=== PATIENT | female | born 1955 | race African-American/Black ===

== ENCOUNTER 2017-09-09 15:00 | Outpatient (CLI) | payer MEDICARE, OTHER ==
[~2017-09-09] VITALS: Ht 174 cm; Wt 136.1 kg
[~2017-09-09 15:00] MED LIST: ARIP2TAB10 PO; CARB200C3 PO; CARB200T6; CEPH500C PO; CIPR-17; CYCL10TA9; CYCL10TA9 PO; DARI7.5T8; DESV50TA PO; DEXT5TAB25 PO; DICY10CA12; DOCU-143 PO; DULO60CA6; ESCI10TA PO; FLC1T; FLC1T PO; FOLI0.4T2 PO; FOLI0.8T PO; FOLI1TAB24 PO; GABA-488 PO; HYDR-3454 PO; INSU100V6; INSU100V6 SQ; INSU300I SQ; LISI1TAB2; LISI1TAB6 PO; MELA1TAB15 PO; MELA1TAB16 PO; MELO-195; MELO-195 PO; METH2.5T PO; MIRT15TA6 PO; MTX2.5T; OXYC-197 PO; OXYC-471 PO; PRED2.5T PO; PROP60CA PO; SITA1TAB6; SITA1TAB6 PO; SITA1TBM4 PO; TIZA2TAB3 PO; TRAM50TA2; TRAM50TA2 PO; VENL75CA PO; VENL75TA6 PO
[2017-09-09] MEDS ORDERED: VORT20TA PO (15:20)
[2017-09-09] MEDS ORDERED: PRIM50TA PO (15:20)
[2017-09-09] MEDS ORDERED: SUCR1TAB PO (15:20)
[2017-09-09] MEDS ORDERED: LEVO50TA6 PO (15:20)
[2017-09-09] MEDS ORDERED: PRED2.5T PO (15:20)
[2017-09-09] MEDS ORDERED: ESCI20TA PO (15:20)
[2017-09-09] MEDS ORDERED: TRAM50TA2 PO (15:20)
[2017-09-09] MEDS ORDERED: PANT40TA2 PO (15:20)
[2017-09-09] MEDS ORDERED: TRAZ-28 PO (15:20)
== END 2017-09-09 15:32 ==
LOC: PREOP 15:00
PROVIDERS: ATTEND Surgery
DX: Z01.818 Encounter for other preprocedural examination (principal); E66.01 Morbid (severe) obesity due to excess calories; Z68.41 Body mass index [BMI] 40.0-44.9, adult

== ENCOUNTER 2017-09-12 08:38 | Inpatient (IN) | payer MEDICARE, OTHER ==
[~2017-09-12] VITALS: Ht 174 cm; Wt 136.1 kg
[~2017-09-12 08:38] MED LIST changes: +ESCI20TA PO; +LEVO50TA6 PO; +PANT40TA2 PO; +PRIM50TA PO; +SUCR1TAB PO; +TRAZ-28 PO; +VORT20TA PO
[2017-09-12] MEDS ORDERED: ceFAZolin INJECTION 1,000 MG in NS (IVPB) 50 ML IV ONE (08:45)
--- NOTE | 2017-09-12 09:00 | Progress Note-Pre Operative ---
Pre-Operative Progress Note H&P Reviewed The H&P was reviewed, patient examined and no changes noted. Date Seen by Provider: Sep 12, 2017 Time Seen by Provider: 09:00 Date H&P Reviewed: Sep 12, 2017 Time H&P Reviewed: 09:00 Pre-Operative Diagnosis: morbid obesity, DM, HTN ROMERO HAWK MD Sep 12, 2017 9:00 am
[2017-09-12 09:12] VITALS: BP 126/80
[2017-09-12 09:15] LABS: BASOPHILS % (AUTO) 0 % (0-10); EOSINOPHILS % (AUTO) 0 % (0-10); HEMATOCRIT 43 % (35-52); LYMPHOCYTES # (AUTO) 3.3 X 10^3 (1.0-4.0); LYMPHOCYTES % (AUTO) 34 % (12-44); MEAN CORPUSCULAR HEMOGLOBIN 32 PG (25-34); MEAN CORPUSCULAR HGB CONC 35 G/DL (32-36); MEAN CORPUSCULAR VOLUME 91 FL (80-99); MEAN PLATELET VOLUME 10.3 FL (7.4-10.4); MONOCYTES # (AUTO) 0.9 X 10^3 (0.0-1.0); MONOCYTES % (AUTO) 9 % (0-12); NEUTROPHILS # (AUTO) 5.7 X 10^3 (1.8-7.8); NEUTROPHILS % (AUTO) 58 % (42-75); PLATELET COUNT 242 10^3/uL (130-400); RED BLOOD COUNT 4.72 10^6/uL (4.35-5.85); RED CELL DISTRIBUTION WIDTH 14.6 % (10.0-14.5); WHITE BLOOD COUNT 9.9 10^3/uL (4.3-11.0)
[2017-09-12] MEDS: LACTATED RINGERS 1,000 ML IV PRN ×2 (09:30→11:03)
[2017-09-12 09:37] LABS: BUN/CREATININE RATIO 14; CALCIUM 10.2 MG/DL (8.5-10.1); CARBON DIOXIDE 24 MMOL/L (21-32); CHLORIDE 101 MMOL/L (98-107); CREATININE SERUM 0.94 MG/DL (0.60-1.30); GFR ESTIMATED > 60; GLUCOSE 129 MG/DL (70-105); POTASSIUM 3.7 MMOL/L (3.6-5.0); SODIUM 136 MMOL/L (135-145)
[2017-09-12] MEDS ORDERED: BUP/EPI 0.5% 1:200,000 (SENSORCAINE) 30 ML VIAL ONE (09:51)
[2017-09-12] MEDS ORDERED: FAMOTIDINE 20MG/2ML IV (PEPCID) IV ONE (10:00)
[2017-09-12] MEDS ORDERED: morphine INJ 10 MG/ML 1ML (SYR OR VIAL) ONE (12:41)
[2017-09-12] MEDS ORDERED: NS IV 1000 ML 1,000 ML IV SCH (12:41)
--- NOTE | 2017-09-12 12:41 | Progress Note-Post Operative ---
Post-Operative Progess Note Surgeon (s)/Digital Advisor (s) Surgeon ROMERO HAWK MD Digital Advisor: garcia dosbon TRAVELING CLERK Pre-Operative Diagnosis morbid obesity, DM, HTN Post-Operative Diagnosis same Procedure & Operative Findings Date of Procedure 09/12/17 Procedure Performed/Findings laparoscopic gastric sleeve resection. Anesthesia Type GET Estimated Blood Loss Estimated blood loss (mL): minimal Specimens/Packing Specimens Removed stomach ROMERO HAWK MD Sep 12, 2017 12:41 pm
[2017-09-12] MEDS ORDERED: ONDANSETRON 4 MG/2 ML (SDV) Z0FRAN ONE (12:42)
[2017-09-12] MEDS ORDERED: fentaNYL INJECTION 1,000 MCG in NS (IVPB) 80 ML IV SCH (12:45)
[2017-09-12] MEDS ORDERED: NALOXONE 0.4 MG/ML 1 ML (NARCAN) VIAL IV PRN (12:45)
[2017-09-12] MEDS ORDERED: diphenhydrAMINE 50 MG/ML INJ (BENADRYL) IV PRN (12:45)
[2017-09-12] MEDS ORDERED: ONDANSETRON 4 MG/2 ML (SDV) Z0FRAN IV PRN ×2 (12:45→16:00)
[2017-09-12] MEDS ORDERED: METOCLOPRAMIDE INJ 10 MG/2 ML (REGLAN) IV PRN (12:45)
[2017-09-12] MEDS ORDERED: RT-ALBUTEROL SULF 2.5 MG/3 ML PRE-MIX VIAL INH SCH (12:45)
[2017-09-12] MEDS ORDERED: diphenhydrAMINE 50 MG/ML INJ (BENADRYL) IVP PRN (12:45)
--- NOTE | 2017-09-12 12:50 | Discharge Inst-Surgical ---
D/C Lap Instructions-CARINE Follow Up Appt in 2 weeks Activity as tolerated No driving for 24 hours No driving while on pain medications Incentive Spirometry use every 2 hours while awake Phase 1 clear liquid diet 2 weeks. Symptoms to Report: Fever over 101 degree F, Nausea/Vomiting Infection Signs and Symptoms to report: Increased redness, Foul odor of wound, Increased drainage Bathing instructions: May shower Operative Area Clean/Dry; Keep incision clean/dry If any problems/questions: Contact your physician or go to Emergency Room ROMERO HAWK MD Sep 12, 2017 12:50 pm
[2017-09-12] MEDS ORDERED: ONDANSETRON 4 MG/2 ML (SDV) Z0FRAN IVP PRN (13:00)
[2017-09-12] MEDS: morphine INJ 10 MG/ML 1ML (SYR OR VIAL) IVP PRN ×3 (13:16→13:24)
[2017-09-12] MEDS ORDERED: fentaNYL INJECTION 100 MCG/2 ML AMP ONE (13:31)
[2017-09-12] MEDS: fentaNYL INJECTION 100 MCG/2 ML AMP IVP PRN ×5 (13:33→16:17)
--- NOTE | 2017-09-12 15:48 | OPERATIVE REPORT ---
DATE OF SERVICE: ATTENDING PRIMARY CARE PHYSICIAN: Dr. Ezequiel Zamora. PREOPERATIVE DIAGNOSES: Morbid obesity, diabetes, hypertension. POSTOPERATIVE DIAGNOSES: Morbid obesity, diabetes, hypertension. PROCEDURE: Laparoscopic gastric sleeve resection. SURGEON: Romero Hawk MD. ANESTHESIA: General endotracheal. ESTIMATED BLOOD LOSS: Minimal. FINDINGS: Moderate liver cirrhosis and steatosis. DISPOSITION: The patient tolerated the procedure well. INDICATIONS FOR PROCEDURE: The patient is a 62-year-old female with morbid obesity who is in our surgical weight loss program for the laparoscopic gastric sleeve resection and meets the medical criteria for bariatric surgery. She reports that she is an overweight the majority of her life even as a child. She has tried a number of diet and exercise attempts without any success. She has tried diet programs including Weight Watchers, soup diet, grapefruit diet, small portion control as well as low calorie and low carbohydrate diet with no success except for Weight Watchers in which she did lose approximately 130 pounds; however, regained the weight back. She has tried exercise programs including walking, water aerobics again with no success. She has tried medications in the past; however, unsure what they were. However, does not report any success. Her medical comorbidities related to her obesity include hypertension, diabetes, rheumatoid arthritis, degenerative joint disease, depression. DESCRIPTION OF PROCEDURE: The patient was brought to the operating room, laid supine on the table. After adequate IV pain and sedative medications and general endotracheal intubation, the abdomen was prepped and draped in standard surgical fashion. A 0.5% Marcaine with epinephrine was then used to anesthetize the overlying skin in the left upper abdominal quadrant and a transverse skin incision made using a 15 blade. An 0 silk suture was applied to the medial aspect of the incision for retraction and a Veress needle inserted with a low opening pressure of 0 mmHg and abdomen was insufflated to 15 mmHg pressure. The Veress needle removed and a 5 mm Xcel trocar placed followed by a 5 mm 45-degree angle laparoscope visualizing the peritoneal cavity. A 4-quadrant abdominal exploration was performed. There was moderate liver cirrhosis and significant liver steatosis. What was visualized of the remainder of the stomach, small bowel, omentum appeared normal. There was no identifiable hiatal hernia. Under direct visualization, we then proceeded to place a midabdominal left of midline 5 mm port after the skin and peritoneum were anesthetized using 0.5% Marcaine with epinephrine and a transverse skin incision made using a 15 blade. In a similar manner, a midabdominal right of midline 15 mm port was placed followed by a 5 mm right upper abdominal quadrant port. The epigastric region was then anesthetized and a transverse skin incision made using a #11 blade. A tract was then created through the abdominal wall layers using a trocar to a 5 mm port. Through this opening, a medium-sized Nathansen liver retractor was placed and the left lobe of the liver retracted anteriorly and superiorly. The patient was then placed in steep reverse Trendelenburg position. We then measured the distance from the pylorus along the greater curvature cephalad 6 cm then marked this with a marking pen. The gastrocolic ligament next to the stomach was then opened using Sonicision entering the lesser sac. We then proceeded with inferior dissection until her caudal dissection until we were probably approximately 2 cm below our marking. We then proceeded with cephalad dissection taking down the short gastric vessels with visualization of good hemostasis. The angle of His, connective tissue fibers were then dissected out as well as the posterior stomach behind. No hiatal hernia was identified. A 42-Azeri bougie was then placed under direct visualization guiding at the tip into the pylorus. We used this guide for our staple line. A RAFIA 45 mm polyglycolic acid coated black load stapler was then used to staple and transect the stomach into approximately 2 cm below our marking. We then proceeded with a 60 mm black followed by 360 mm purple loads to complete our gastric sleeve resection. Good hemostasis was observed. The staple line corners were then clipped with 5 mm clips. Tisseel fibrin glue was then placed on to the suture line and the omentum placed over the staple line. The stomach has removed through the 15 mm port site. The fascia to the 15 and 10 mm port site was then closed under direct visualization using Vadim-Ruben device and 0 Vicryl suture. The liver retractor and was then removed as was the bougie. The abdomen was desufflated and the remaining ports removed. All skin incisions were closed using 4-0 Monocryl running subcuticular sutures. Wounds were then cleaned and covered with Dermabond. The patient tolerated the procedure well. We will admit her to the general surgical floor. We will proceed with DVT prophylaxis with calf SCDs early ambulation as well as Lovenox injections. We will also proceed with pain control with a fentanyl BLEND TECHNICIAN. Tomorrow morning, we will start clear liquid diet. Once she is tolerating least 60 mL of fluid over half hour, she has adequate pain control with oral pain medication and is ambulating well. We will discharge her home. She will also need to follow clear liquid diet for the next 2 weeks. Job ID: [id number] DocumentID: [id number] Dictated Date: 09/12/2017 13:00:27 Ticket Attendant Date: 09/12/2017 15:47:49 Dictated By: ROMERO HAWK MD MTDD
[2017-09-12 15:50] VITALS: BP 134/82
[2017-09-12] MEDS: 1/2 NS W/KCL 20 MEQ/L 1,000 ML IV SCH ×3 (16:16→23:23)
[2017-09-12] MEDS: metroNIDAZOLE 500MG/100ML IVPB 100 ML IV SCH ×2 (16:17→23:23)
[2017-09-12] MEDS: meTOprolol 5 MG/5 ML (LOPRESSOR) VIAL IVP SCH ×2 (16:26→20:17)
[2017-09-12 16:50] VITALS: BP 127/89
[2017-09-12] MEDS: inSUlin ASPART (NovoLOG) 1 UNIT/0.01 ML (CHARGE PER UNIT) SC SCH ×2 (17:30→23:28)
[2017-09-12] MEDS: METOCLOPRAMIDE INJ 10 MG/2 ML (REGLAN) IVP SCH ×2 (18:12→23:33)
[2017-09-12] MEDS: ONDANSETRON 4 MG/2 ML (SDV) Z0FRAN IVP SCH ×2 (18:12→23:33)
[2017-09-12] MEDS: ceFAZolin 2 GM IV Premixed 50 ML IV SCH (18:13)
[2017-09-12 18:30] VITALS: BP 122/72
[2017-09-12 20:15] VITALS: BP 120/64
[2017-09-12] MEDS: ENOXAPARIN 40 MG/0.4 ML (LOVENOX) SYR SC SCH (21:32)
[2017-09-12] MEDS: RT-ALBUTEROL SULF 2.5 MG/3 ML PRE-MIX VIAL INH SCH (22:10)
[2017-09-13 00:10] VITALS: BP 136/80
[2017-09-13] MEDS: meTOprolol 5 MG/5 ML (LOPRESSOR) VIAL IVP SCH ×3 (00:18→09:11)
[2017-09-13] MEDS: ceFAZolin 2 GM IV Premixed 50 ML IV SCH ×2 (01:55→10:31)
[2017-09-13] MEDS: RT-ALBUTEROL SULF 2.5 MG/3 ML PRE-MIX VIAL INH SCH ×2 (02:28→07:09)
[2017-09-13 04:00] VITALS: BP 145/86
[2017-09-13] MEDS: METOCLOPRAMIDE INJ 10 MG/2 ML (REGLAN) IVP SCH ×2 (05:48→14:10)
[2017-09-13] MEDS: ONDANSETRON 4 MG/2 ML (SDV) Z0FRAN IVP SCH ×2 (05:48→14:10)
[2017-09-13] MEDS: inSUlin ASPART (NovoLOG) 1 UNIT/0.01 ML (CHARGE PER UNIT) SC SCH ×2 (06:05→11:00)
[2017-09-13] MEDS: metroNIDAZOLE 500MG/100ML IVPB 100 ML IV SCH (06:53)
[2017-09-13 08:00] VITALS: BP 149/69
[2017-09-13] MEDS: 1/2 NS W/KCL 20 MEQ/L 1,000 ML IV SCH (08:35)
[2017-09-13] MEDS: ENOXAPARIN 40 MG/0.4 ML (LOVENOX) SYR SC SCH (08:36)
[2017-09-13] MEDS ORDERED: SENNA W/DOCUSATE (SENOKOT S) TABLET PO SCH (09:00)
[2017-09-13] MEDS ORDERED: PANTOPRAZOLE 40 MG/10 ML (PROTONIX) VIAL IV SCH (09:00)
[2017-09-13] MEDS: oxyCODONE 5 MG/5 ML ORAL SOLN (roxiCODONE) 5 ML UDC PO PRN ×2 (09:12→14:03)
[2017-09-13 10:18] LABS: HEMOGLOBIN 14.7 G/DL (11.5-16.0); MEAN PLATELET VOLUME 11.4 FL (7.4-10.4); RED BLOOD COUNT 4.54 10^6/uL (4.35-5.85); RED CELL DISTRIBUTION WIDTH 14.2 % (10.0-14.5); WHITE BLOOD COUNT 13.2 10^3/uL (4.3-11.0)
[2017-09-13 10:36] LABS: BUN/CREATININE RATIO 18; CALCIUM 8.9 MG/DL (8.5-10.1); CARBON DIOXIDE 23 MMOL/L (21-32); CHLORIDE 99 MMOL/L (98-107); CREATININE SERUM 0.77 MG/DL (0.60-1.30); GFR ESTIMATED > 60; GLUCOSE 156 MG/DL (70-105); SODIUM 135 MMOL/L (135-145)
[2017-09-13] MEDS ORDERED: RT-ALBUTEROL SULF 2.5 MG/3 ML PRE-MIX VIAL INH PRN (10:45)
[2017-09-13 12:00] VITALS: BP 169/79
[2017-09-13] MEDS ORDERED: METOCLOPRAMIDE INJ 10 MG/2 ML (REGLAN) IVP PRN (12:45)
[2017-09-13] MEDS ORDERED: ONDANSETRON 4 MG/2 ML (SDV) Z0FRAN IVP PRN (12:45)
--- NOTE | 2017-09-13 13:09 | Anesthesia-General Post-Op ---
General Patient Condition Mental Status/LOC: Same as Preop Cardiovascular: Satisfactory Nausea/Vomiting: Absent Respiratory: Satisfactory Pain: Controlled Complications: Absent Post Op Complications Complications None Follow Up Care/Instructions Patient Instructions None needed. Anesthesia/Patient Condition Patient Condition Patient is doing well, no complaints, stable vital signs, no apparent adverse anesthesia problems. No complications reported per nursing. GONZÁLEZ SNYDER CRNA Sep 13, 2017 13:09
--- NOTE | 2017-09-13 13:26 | Progress Note (SOAP) ---
Subjective Date Seen by Provider: Sep 13, 2017 Time Seen by Provider: 13:00 Subjective/Events-last exam doing well. has some abdominal pain however tolerable. tolerating well. has not tried ambulating yet. Objective Exam Vital Signs Date Time Temp Pulse Resp B/P (MAP) Pulse Ox O2 Delivery O2 Flow Rate FiO2 09/13/17 08:00 97.3 73 20 149/69 (95) 98 Room Air 09/13/17 07:09 97 Room Air 09/13/17 06:56 18 09/13/17 04:00 98.6 77 20 145/86 (105) 100 Room Air 09/13/17 02:18 95 Room Air 09/13/17 00:26 18 09/13/17 00:10 98.4 85 18 136/80 (98) 98 Room Air 09/12/17 22:10 97 Room Air 09/12/17 21:15 20 09/12/17 20:15 96.4 75 20 120/64 (82) 100 Room Air 09/12/17 18:39 20 09/12/17 18:36 20 09/12/17 18:32 96 Room Air 09/12/17 18:30 96.5 76 20 122/72 (89) 100 Room Air 09/12/17 16:50 96.4 78 20 127/89 (102) 99 Room Air 09/12/17 16:15 2 09/12/17 15:50 96.3 67 20 134/82 (99) 99 Room Air I & O 09/13/17 07:00 Intake Total 2150 ml Output Total 905 ml Balance 1245 ml Capillary Refill : General Appearance: No Apparent Distress HEENT: PERRL/EOMI Neck: Full Range of Motion, Normal Inspection Respiratory: Chest Non Tender, Lungs Clear, Normal Breath Sounds Cardiovascular: Regular Rate, Rhythm Gastrointestinal: normal bowel sounds, soft, other (wound clean/dry) Extremity: Normal Capillary Refill Neurologic/Psychiatric: Alert, Oriented x3 Skin: Normal Color Lymphatic: No Adenopathy Results Lab Laboratory Tests 09/12/17 17:26: Glucometer 182H 09/12/17 23:27: Glucometer 144H 09/13/17 05:52: Glucometer 169H 09/13/17 10:00: White Blood Count 13.2H, Red Blood Count 4.54, Hemoglobin 14.7, Hematocrit 41, Mean Corpuscular Volume 91, Mean Corpuscular Hemoglobin 32, Mean Corpuscular Hemoglobin Concent 36, Red Cell Distribution Width 14.2, Platelet Count 203, Mean Platelet Volume 11.4H, Sodium Level 135, Potassium Level 4.0, Chloride Level 99, Carbon Dioxide Level 23, Anion Gap 13, Blood Urea Nitrogen 14, Creatinine 0.77, Estimat Glomerular Filtration Rate > 60, BUN/Creatinine Ratio 18, Glucose Level 156H, Calcium Level 8.9 Microbiology 09/12/17 MRSA Screen - Final, Complete MRSA not isolated Assessment/Plan Assessment/Plan Assess & Plan/Chief Complaint s/p laparoscopic gastric sleeve resection. ambulate. phase 1 clear liquid diet for next 2 weeks. home soon. ROMERO HAWK MD Sep 13, 2017 1:26 pm
[2017-09-13 14:00] VITALS: BP 158/88
[2017-09-13] MEDS ORDERED: RT-ALBUTEROL SULF 2.5 MG/3 ML PRE-MIX VIAL INH SCH (14:00)
[2017-09-13 15:15] VITALS: BP 158/88
--- NOTE | 2017-09-13 15:22 | Consultation-Hospitalist ---
HPI History of Present Illness: HPI/Chief Complaint Pt is a 62yoAAF with a PMH of HTN, IDDMII, and depression who was admitted for bariaatric surgery. I am consulted for medical management. She reports that she is have some abdominal pain around her surgery site and doesn't feel well but has not felt well for a while prior to her surgery. She states she had the surgery to help with her energy and not necessarily her weight. She was able to take herself off her insulin as her blood sugars were well controlled. She otherwise had no complaints during my exam. She was up already out of bed today and tolerating her liquid diet. Source: patient Date Seen 09/13/17 Attending Physician Joo Victoria MD PCP Ezequiel Zamora MD Referring Physician Date of Admission Sep 12, 2017 at 12:42 Home Medications & Allergies Home Medications Reviewed patient Home Medication Reconciliation Form Allergies Allergies Coded Allergies lithium (Verified Allergy, Severe, SHUT KIDNEYS DOWN, 09/09/17) Sulfa (Sulfonamide Antibiotics) (Unverified Allergy, Mild, ITCHING;RASH, ) Past Tvepejv-Zgncsj-Ykmvck Hx Patient Social History Alcohol Use: Denies Use Recreational Drug Use: No Smoking Status: Never a Smoker Recent Foreign Travel: No Contact w/other who traveled: No Recent Hopitalizations: No Immunizations Up To Date Tetanus Booster (TDap): Unknown Seasonal Allergies Seasonal Allergies: No Surgeries Gallbladder, Hysterectomy, Lumpectomy Cardiovascular Hypertension Neurological Headaches /Migraines, Neuropathy Reproductive System Hx Reproductive Disorders: No Sexually Transmitted Disease: No HIV/AIDS: No Genitourinary Bladder Infection, Kidney Stones, Renal Failure Gastrointestinal Gastroesophageal Reflux, Polyps, Irritable Bowel Musculoskeletal Degenerate Disk Disease, Fibromyalgia, Chronic Back Pain Endocrine Endocrine Disorders: Diabetes, Insulin dep HEENT Loss of Vision: Bilateral Hearing Impairment: Denies Cancer Breast Did You Recieve Any Treatments: Yes Type of Treatment: Chemotherapy, Radiation, Surgical Intervention Psychosocial Behavioral Health Disorders: Depression Integumentary Skin/Integumentary Disorders: Psoriasis Blood Transfusions Adverse Reaction to a Blood Tr: No Family Medical History Family Hx: ANEURYSM ON HEART 19 FATHER Abdominal aortic aneurysm COLON CANCER Cardiovascular disease 19 MOTHER Hypertension 19 MOTHER Prostate cancer 19 FATHER SLEEP APNEA 19 FATHER TIA'S 19 FATHER Review of Systems Constitutional: No chills, No fever, malaise EENTM: No blurred vision, No double vision, No nose congestion, No throat pain Respiratory: No cough, No dyspnea on exertion, No short of breath Cardiovascular: No chest pain, No edema, No palpitations Gastrointestinal: abdominal pain, No constipation, No diarrhea, No nausea, No vomiting Genitourinary: No dysuria, No frequency Musculoskeletal: No joint pain, No muscle pain Skin: No lesions, No rash Psychiatric/Neurological: Depressed, Denies Headache, Denies Numbness, Denies Tingling Physical Exam Physical Exam Vital Signs Vital Signs - First Documented 09/12/17 09:12 Temp 97.6 Pulse 82 Resp 18 B/P (MAP) 126/80 (95) Pulse Ox 97 O2 Delivery Room Air Capillary Refill : General Appearance: No Apparent Distress, Obese HEENT: PERRL/EOMI, Moist Mucous Membranes Neck: Non Tender, Supple Respiratory: Lungs Clear, No Respiratory Distress Cardiovascular: Regular Rate, Rhythm, No Murmur Gastrointestinal: Normal Bowel Sounds, Soft, Tenderness (appropriately so) Extremity: Normal Capillary Refill, No Calf Tenderness Neurologic/Psychiatric: Alert, Oriented x3, Other (flat affect) Skin: Normal Color, Warm/Dry Results Results/Procedures Lab Laboratory Tests 09/12/17 09:05 09/13/17 10:00 Assessment/Plan Admission Diagnosis bariatric surgery Diagnosis/Problems Diagnosis/Problems (1) Insulin dependent diabetes mellitus Status: Chronic Assessment & Plan: Has taken self off insulin Will Continue sliding scale Hold orals currently ACHS blood sugars (2) Essential (primary) hypertension Assessment & Plan: Relatively well controlled prn metoprolol available (3) Depression Status: Chronic Assessment & Plan: On multiple antidepressants as an outpatient If tolerates her oral intake today will resume tomorrow Qualifiers: Qualified Codes: F33.9 - Major depressive disorder, recurrent, unspecified (4) Hypothyroidism Assessment & Plan: On Synthroid at home Will resume tomorrow ROGE HEATH MD Sep 13, 2017 15:22
--- OUTSIDE RECORDS SUMMARY | 2017-09-15 05:37 | XMS REPORT ---
Author Author MIQUEL VEGAS [facility] eClinicalWorks Address Unknown Phone Unavailable Care Team Providers Care Lpn Private Duty Name Role Phone MIQUEL VEGAS CP Unavailable Allergies, Adverse Reactions, Alerts Substance Reaction Event Type SulfADIAZINE itching Drug Allergy Problems Problem Type Condition Code Onset Dates Condition Status Assessment Major depressive disorder, recurrent severe without psychotic features F33.2 Active Problem Major depressive disorder, recurrent severe without psychotic features F33.2 Active Medications Medication Code System Code Instructions Start Date End Date Status Dosage Insulin Glargine [facility] [address]-78 100 UNIT/ML Subcutaneous 2 times a day 50 units Melatonin [facility] [address]-20 3 MG Orally Once a day 2 tablet at bedtime as needed with food Mirtazapine [facility] [address]-87 15 MG TAKE 0.5- 1 TABLET BY ORAL ROUTE 1 TIME PER DAY AT HS Folic Acid [facility] [address]-22 400 mcg Jul 08, 2014 2 Tablet by Oral route 1 time per day Meloxicam [facility] [address]-53 15 MG Orally Once a day 1 tablet Tramadol HCl [facility] [address]-62 50 MG Orally 2 IN THE AM AND 2 IN THE EVENING Methotrexate Sodium [facility] 0 2.5 mg Jul 08, 2014 8 Tablet by Oral route 1 time per week Gabapentin [facility] [address]-09 300 mg Aug 27, 2012 1 Capsule by Oral route 1 time per day Marissa Carbonate [facility] [address]-44 300 MG Orally Three times a day Jun 1 capsule cyclobenzaprine [facility] [address]-30 10 mg Aug 12, 2014 1 Tablet by Oral route 1 time per day qAM AND 2 Tablet by Oral route 1 time per day qHS Lisinopril-Hydrochlorothiazide [facility] [address]-45 10-12.5 mg Jul 08, 2014 1 Tablet by Oral route 2 times per day Janumet [facility] [address]-63 50-1000 MG Orally Twice a day 1 tablet with meals Procedures Procedure Coding System Code Date Office Visit, Est Pt., Level 3 CPT-4 12810 Jun 21, 2015 [facility] VISIT ESTABLISHED PATIENT CPT-4 G0467 Jun 21, 2015 Vital Signs Date/Time: Jun 21, 2015 Cardiac Monitoring Heart Rate 94 bpm Weight 309.1 lbs Height 68.5 in BMI 46.31 Index Blood Pressure Diastolic 82 mmHg Blood Pressure Systolic 162 mmHg Results No Known Results Summary Purpose eClinicalWorks Submission
--- OUTSIDE RECORDS SUMMARY | 2017-09-15 05:37 | XMS REPORT | Clinical Summary ---
Author Author [facility] Organization [facility] Address Unknown Phone Unavailable Care Team Providers Care Flight Hostess Name Role Phone Kristina Byrne ETCH OPERATOR [employer]IC[employer] Unavailable Unavailable Source Comments Some departments are not documenting in the electronic medical record. If you do not see the information that you expected, contact Release of Information in the Health Information Management department at [phone] for further assistance in locating additional records.[facility] Allergies Active Allergy Reactions Severity Noted Date Comments Sulfa (Sulfonamide 10/05/2003 Allergy recorded in SMS: Antibiotics) Sulfa~Reactions: HIVES Current Medications Not on file Active Problems Not on file Social History Tobacco Use Types Packs/Day Years Used Date Never Assessed Sex Assigned at Date Recorded Not on file Last Filed Vital Signs Not on file Plan of Treatment Health Maintenance Due Date Last Done Comments HEPATITIS C SCREENING 1954 PHYSICAL (COMPREHENSIVE) 1961 EXAM PERTUSSIS VACCINE 1965 TETANUS VACCINE 1971 CERVICAL CANCER SCREENING 1984 BREAST CANCER SCREENING 1994 COLORECTAL CANCER 2004 SCREENING SHINGLES VACCINE 2014 INFLUENZA VACCINE 03/05/2017 Results Not on filefrom Last 3 Months
--- OUTSIDE RECORDS SUMMARY | 2017-09-15 05:37 | XMS REPORT ---
Author Author AUDREY LANDEROS e[employer] Address Unknown Phone Unavailable Care Team Providers Care Greenskeeper Laborer Name Role Phone AUDREY LANDEROS CP Unavailable Allergies, Adverse Reactions, Alerts Substance Reaction Event Type [place] renal failure Drug Allergy SulfADIAZINE itching Drug Allergy Problems Problem Type Condition Code Onset Dates Condition Status Assessment Major depressive disorder, recurrent, moderate F33.1 Active Problem Major depressive disorder, recurrent, moderate F33.1 Active Medications Medication Code System Code Instructions Start Date End Date Status Dosage Augumet [facility] [address]-99 50-1000 MG Orally Twice a day 1 tablet with meals Folic Acid [facility] [address]-55 1 MG Orally Once a day Jul 08, 2014 1 tablet Cyclobenzaprine HCl [facility] [address]-16 10 MG Orally Three times a day 1 tablet Pristiq [facility] [address]-96 100 MG Orally Once a day 1 tablet Gabapentin [facility] [address]-11 300 mg Orally 3 times a day Aug 27, 2012 2 capsules Lisinopril-Hydrochlorothiazide [facility] [address]-69 10-12.5 mg Jul 08, 2014 1 Tablet by Oral route 2 times per day Tramadol HCl [facility] [address]-63 50 mg Orally 3 times a day 2 tablets Melatonin [facility] [address]-21 5 MG Orally Once a day 1 tablet PredniSONE [facility] [address]-06 2.5 MG Orally Once a day 1 tablet Adderall [facility] [address]-64 5 mg Orally Once a day 1 tablet in the morning Mirtazapine [facility] [address]-06 15 MG TAKE 0.5- 1 TABLET BY ORAL ROUTE 1 TIME PER DAY AT HS Methotrexate Sodium [place] 0 2.5 MG Orally once weekly Jul 08, 2014 8 Tablet by Oral route 1 time per week Procedures Procedure Coding System Code Date Office Visit, Est Pt., Level 2 CPT-4 43504 May 11, 2016 [facility] VISIT ESTABLISHED PATIENT CPT-4 G0467 May 11, 2016 Vital Signs Date/Time: May 11, 2016 Cardiac Monitoring Heart Rate 80 bpm Weight 285 lbs Height 68.5 in BMI 42.70 Index Blood Pressure Diastolic 70 mmHg Blood Pressure Systolic 122 mmHg Results No Known Results Summary Purpose eClinicalWorks Submission
--- OUTSIDE RECORDS SUMMARY | 2017-09-15 05:37 | XMS REPORT ---
Author Author KRISTOPHER LARA Organization [employer] Address Unknown Phone Unavailable Care Team Providers Care Litigation Examiner Name Role Phone KRISTOPHER LARA CP Unavailable Allergies No Known Allergies Problems Problem Type Condition ICD-9 Code Onset Dates Condition Status Assessment Dental examination V72.2 Active Problem Major depressive disorder, recurrent episode, moderate 296.32 Active Medications No Known Medications Procedures Procedure Coding System Code Date AMALGAM-TWO SURFACES PRIMARY/PERM CPT-4 D2150 Apr 05, 2015 AMALGAM-TWO SURFACES PRIMARY/PERM CPT-4 D2150 Apr 05, 2015 Results No Known Results Summary Purpose eClinicalWorks Submission
--- OUTSIDE RECORDS SUMMARY | 2017-09-15 05:37 | XMS REPORT ---
Author Author AUDREY LANDEROS [facility] Address [address] [place] [address] Care Team Providers Care Machine Spring Former Name Role Phone AUDREY LANDEROS Unavailable PROBLEMS Type Condition ICD9-CM Code HMA34-QZ Code Onset Dates Condition Status SNOMED Code Problem Psychophysiological insomnia F51.04 Active 808683825 Problem Major depressive disorder, recurrent episode, moderate F33.1 Active 113393215 Problem Anxiety state, unspecified F41.1 Active 270089184 ALLERGIES No Information SOCIAL HISTORY Never Assessed PLAN OF CARE VITAL SIGNS MEDICATIONS Medication Instructions Dosage Frequency Start Date End Date Duration Status Trazodone HCl 50 mg Orally Once a day 1 tablet at bedtime as needed 24h Sep, 30 day(s) Active RESULTS No Results PROCEDURES No Known procedures IMMUNIZATIONS No Known Immunizations MEDICAL (GENERAL) HISTORY Type Description Date Medical History seizure hx Surgical History Right Knee Replacement [facility] [place] 11/2015 Hospitalization History Acute Kidney Failure Nenita [facility] 07/2015
--- OUTSIDE RECORDS SUMMARY | 2017-09-15 05:37 | XMS REPORT ---
Author Author AUDREY LANDEROS [facility] eClinicalWorks Address Unknown Phone Unavailable Care Team Providers Care Hr Administrative Assistant Name Role Phone AUDREY LANDEROS Unavailable Allergies No Known Allergies Problems Problem Type Condition Code Onset Dates Condition Status Problem Major depressive disorder, recurrent episode, moderate F33.1 Active Problem Major depressive disorder, recurrent, moderate F33.1 Active Medications No Known Medications Results No Known Results Summary Purpose eClinicalWorks Submission
--- OUTSIDE RECORDS SUMMARY | 2017-09-15 05:37 | XMS REPORT ---
Author Author AUDREY LANDEROS Organization [facility] Address [address] [place] [address] Care Team Providers Care Cork Slabs Sawyer Name Role Phone GAURAV LANDEROSEDU Unavailable PROBLEMS Type Condition ICD9-CM Code [id number] Code Onset Dates Condition Status SNOMED Code Problem Psychophysiological insomnia F51.04 Active 709249714 Problem Major depressive disorder, recurrent episode, moderate F33.1 Active 931895710 Problem Anxiety state, unspecified F41.1 Active 598449045 ALLERGIES Substance Reaction Event Type Date Status Rosine renal failure Drug Allergy Aug, Active SulfADIAZINE itching Drug Allergy Aug, Active SOCIAL HISTORY No smoking Hx information available PLAN OF CARE Activity Details Follow Up 4 Weeks Reason: VITAL SIGNS Height 68.5 in 2016-08-15 Weight 289.5 lbs 2016-08-15 Heart Rate 84 bpm 2016-08-15 Respiratory Rate 18 2016-08-15 BMI 43.37 kg/m2 2016-08-15 Blood pressure systolic 118 mmHg 2016-08-15 Blood pressure diastolic 71 mmHg 2016-08-15 MEDICATIONS Medication Instructions Dosage Frequency Start Date End Date Duration Status Spikebreanna Alissa 300 UNIT/ML Active Pristiq 100 MG Orally Once a day 1 tablet 24h Active Gabapentin 300 mg Orally 3 times a day 2 capsules 8h Aug, Active Cyclobenzaprine HCl 10 MG Orally Three times a day 1 tablet 8h Active Belsomra 10 mg Orally Once a day 1 tablet at bedtime as needed 24h Aug, Active Lisinopril-Hydrochlorothiazide 10-12.5 mg 1 Tablet by Oral route 2 times per day Jul, Active Methotrexate Sodium 2.5 MG Orally once weekly 8 Tablet by Oral route 1 time per week Jul, Active Melatonin 5 MG Orally Once a day 1 tablet 24h Active Tramadol HCl 50 mg Orally 3 times a day 2 tablets 8h Active Folic Acid 1 MG Orally Once a day 1 tablet 24h Jul, Active Janumet 50-1000 MG Orally Twice a day 1 tablet with meals 12h Active Mirtazapine 7.5 MG Orally Once a day 1 tablet at bedtime 24h Active RESULTS No Results PROCEDURES Procedure Date Ordered Related Diagnosis Body Site [facility] VISIT ESTABLISHED PATIENT Aug 15, 2016 Office Visit, Est Pt., Level 2 Aug 15, 2016 IMMUNIZATIONS No Known Immunizations
--- OUTSIDE RECORDS SUMMARY | 2017-09-15 05:37 | XMS REPORT ---
Author Author AUDREY LANDEROS Organization [facility] Address [address] [place] [address] Care Team Providers Care Field Service Coordinator Name Role Phone GAURAV LANDEROSEDU Unavailable PROBLEMS Type Condition ICD9-CM Code [id number] Code Onset Dates Condition Status SNOMED Code Assessment Major depressive disorder, recurrent, moderate F33.1 Apr, Active 06990714 ALLERGIES Unknown Allergies SOCIAL HISTORY No smoking Hx information available PLAN OF CARE VITAL SIGNS Height 68.5 in 2016-04-10 Weight 289.0 lbs 2016-04-10 Heart Rate 78 bpm 2016-04-10 Respiratory Rate 20 2016-04-10 BMI 43.30 kg/m2 2016-04-10 Blood pressure systolic 122 mmHg 2016-04-10 Blood pressure diastolic 78 mmHg 2016-04-10 MEDICATIONS Medication Instructions Dosage Frequency Start Date End Date Duration Status Janumet 50-1000 MG Orally Twice a day 1 tablet with meals 12h Active PredniSONE 2.5 MG Orally Once a day 1 tablet 24h Active Mirtazapine 15 MG TAKE 0.5- 1 TABLET BY ORAL ROUTE 1 TIME PER DAY AT HS Active Cyclobenzaprine HCl 10 MG Orally Three times a day 1 tablet 8h Active Adderall 5 mg Orally Once a day 1/2 tablet 24h Apr, Active Lisinopril-Hydrochlorothiazide 10-12.5 mg 1 Tablet by Oral route 2 times per day Jul, Active Methotrexate Sodium 2.5 MG Orally once weekly 8 Tablet by Oral route 1 time per week Jul, Active Tramadol HCl 50 mg Orally 3 times a day 2 tablets 8h Active Melatonin 5 MG Orally Once a day 1 tablet 24h Active Gabapentin 300 mg Orally 3 times a day 2 capsules 8h Aug, Active Pristiq 50 mg Orally Once a day 2 tablets 24h 30 day(s) Active Folic Acid 1 MG Orally Once a day 1 tablet 24h Jul, Active RESULTS No Results PROCEDURES Procedure Date Ordered Related Diagnosis Body Site [facility] VISIT ESTABLISHED PATIENT Apr 10, 2016 Office Visit, Est Pt., Level 2 Apr 10, 2016 IMMUNIZATIONS No Known Immunizations
--- OUTSIDE RECORDS SUMMARY | 2017-09-15 05:37 | XMS REPORT ---
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
--- OUTSIDE RECORDS SUMMARY | 2017-09-15 05:37 | XMS REPORT ---
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 Medications Medication Code System Code Instructions Start Date End Date Status Dosage Carbamazepine [facility] [address]-27 400 mg Jul 08, 2014 1 Tablet 2 times per day [facility] [address]-57 50-1000 MG Orally Twice a day 1 tablet with meals Brintellix [facility] [address]-58 20 MG Orally Once a day 1 tablet Methotrexate Sodium ND 0 2.5 mg Jul 08, 2014 8 Tablet by Oral route 1 time per week Lisinopril-Hydrochlorothiazide [facility] [address]-54 10-12.5 mg Jul 08, 2014 1 Tablet by Oral route 2 times per day cyclobenzaprine [facility] [address]-37 10 mg Aug 12, 2014 1 Tablet by Oral route 1 time per day qAM AND 2 Tablet by Oral route 1 time per day qHS Mirtazapine [facility] [address]-60 15 MG TAKE 0.5- 1 TABLET BY ORAL ROUTE 1 TIME PER DAY AT HS Insulin Glargine [facility] [address]-60 100 UNIT/ML Subcutaneous 2 times a day 50 units Gabapentin [facility] [address]-15 300 mg Aug 27, 2012 1 Capsule by Oral route 1 time per day Meloxicam [facility] [address]-75 15 MG Orally Once a day 1 tablet Folic Acid [facility] [address]-32 400 mcg Jul 08, 2014 2 Tablet by Oral route 1 time per day Tramadol HCl [facility] [address]-82 50 MG Orally 2 IN THE AM AND 2 IN THE EVENING Results No Known Results Summary Purpose eClinicalWorks Submission
--- OUTSIDE RECORDS SUMMARY | 2017-09-15 05:37 | XMS REPORT ---
Author Author AUDREY LANDEROS Organization [facility] Address [address] [place] [address] Care Team Providers Care Design Supervisor Name Role Phone TIGRE, AUDREY Unavailable PROBLEMS Type Condition ICD9-CM Code [id number] Code Onset Dates Condition Status SNOMED Code Problem Major depressive disorder, recurrent, moderate F33.1 Active 83489970 Problem Psychophysiological insomnia F51.04 Active 210452681 Problem Major depressive disorder, recurrent episode, moderate F33.1 Active 593421564 Problem Anxiety state, unspecified F41.1 Active 475750876 ALLERGIES Substance Reaction Event Type Date Status [facility] renal failure Drug Allergy Jul, Active SulfADIAZINE itching Drug Allergy Jul, Active SOCIAL HISTORY No smoking Hx information available PLAN OF CARE Activity Details Follow Up 2 Months Reason: VITAL SIGNS Height 68.5 in 2016-07-11 Weight 288.7 lbs 2016-07-11 Heart Rate 84 bpm 2016-07-11 Respiratory Rate 18 2016-07-11 BMI 43.25 kg/m2 2016-07-11 Blood pressure systolic 112 mmHg 2016-07-11 Blood pressure diastolic 81 mmHg 2016-07-11 MEDICATIONS Medication Instructions Dosage Frequency Start Date End Date Duration Status Gabapentin 300 mg Orally 3 times a day 2 capsules 8h Aug, Active Methotrexate Sodium 2.5 MG Orally once weekly 8 Tablet by Oral route 1 time per week Jul, Active Folic Acid 1 MG Orally Once a day 1 tablet 24h Jul, Active Pristiq 100 MG Orally Once a day 1 tablet 24h Active Cyclobenzaprine HCl 10 MG Orally Three times a day 1 tablet 8h Active Lisinopril-Hydrochlorothiazide 10-12.5 mg 1 Tablet by Oral route 2 times per day Jul, Active Melatonin 5 MG Orally Once a day 1 tablet 24h Active Toujeo SoloStar 300 UNIT/ML Active Mirtazapine 15 MG TAKE 0.5- 1 TABLET BY ORAL ROUTE 1 TIME PER DAY AT HS Active Janumet 50-1000 MG Orally Twice a day 1 tablet with meals 12h Active Tramadol HCl 50 mg Orally 3 times a day 2 tablets 8h Active RESULTS No Results PROCEDURES Procedure Date Ordered Related Diagnosis Body Site [facility] VISIT ESTABLISHED PATIENT Jul 11, 2016 Office Visit, Est Pt., Level 2 Jul 11, 2016 IMMUNIZATIONS No Known Immunizations
--- OUTSIDE RECORDS SUMMARY | 2017-09-15 05:38 | XMS REPORT ---
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
--- OUTSIDE RECORDS SUMMARY | 2017-09-15 05:38 | XMS REPORT ---
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
--- OUTSIDE RECORDS SUMMARY | 2017-09-15 05:38 | XMS REPORT ---
Author Author DAMASO CUI Organization [employer] Address Unknown Phone Unavailable Care Team Providers Care Public Health Policy Analyst Name Role Phone DAMASO CUI CP Unavailable Allergies No Known Allergies Problems Problem Type Condition Code Onset Dates Condition Status Assessment Major depressive disorder, recurrent, moderate F33.1 Active Problem Major depressive disorder, recurrent, moderate F33.1 Active Medications No Known Medications Procedures Procedure Coding System Code Date Psychotherapy, patient &/family, 30 minutes, established patient CPT-4 04647 May 11, 2016 [facility] VISIT MENTAL HEALTH ESTAB PT CPT-4 G0470 May 11, 2016 Results No Known Results Summary Purpose eClinicalWorks Submission
--- OUTSIDE RECORDS SUMMARY | 2017-09-15 05:38 | XMS REPORT ---
Author Author DAMASO CUI Organization [facility] Address [address] [place] [address] Care Team Providers Care Leasing Professional Name Role Phone DAMASO CUI Unavailable PROBLEMS Type Condition ICD9-CM Code SQA85-SW Code Onset Dates Condition Status SNOMED Code Assessment Major depressive disorder, recurrent episode, moderate F33.1 Apr, Active [id number] ALLERGIES Unknown Allergies SOCIAL HISTORY No smoking Hx information available PLAN OF CARE VITAL SIGNS MEDICATIONS Unknown Medications RESULTS No Results PROCEDURES Procedure Date Ordered Related Diagnosis Body Site [facility] VISIT MENTAL HEALTH ESTAB PT Apr 18, 2016 Psychotherapy, patient &/family, 45 minutes, established patient Apr 18, 2016 IMMUNIZATIONS No Known Immunizations
--- OUTSIDE RECORDS SUMMARY | 2017-09-15 05:38 | XMS REPORT ---
Author Author AUDREY LANDEROS [facility] eClinicalWorks Address Unknown Phone Unavailable Care Team Providers Care Community Cultural Development Officer Name Role Phone AUDREY LANDEROS Unavailable Allergies No Known Allergies Problems Problem Type Condition Code Onset Dates Condition Status Problem Major depressive disorder, recurrent, moderate F33.1 Active Medications Medication Code System Code Instructions Start Date End Date Status Dosage Pristiq [facility] [address]-29 50 mg Orally Once a day 1 tablet Results No Known Results Summary Purpose eClinicalWorks Submission
--- OUTSIDE RECORDS SUMMARY | 2017-09-15 05:38 | XMS REPORT ---
Author Author AUDREY LANDEROS [facility] Address [address] [place] [address] Care Team Providers Care Pugger Helper Name Role Phone AUDREY LANDEROS Unavailable PROBLEMS Type Condition ICD9-CM Code [id number] Code Onset Dates Condition Status SNOMED Code Problem Psychophysiological insomnia F51.04 Active 329289383 Problem Major depressive disorder, recurrent episode, moderate F33.1 Active 842441717 Problem Anxiety state, unspecified F41.1 Active 786508147 ALLERGIES No Information SOCIAL HISTORY Never Assessed PLAN OF CARE VITAL SIGNS MEDICATIONS Medication Instructions Dosage Frequency Start Date End Date Duration Status Pristiq 100 mg Orally Once a day 1 tablet 24h 30 days Active RESULTS No Results PROCEDURES No Known procedures IMMUNIZATIONS No Known Immunizations MEDICAL (GENERAL) HISTORY Type Description Date Medical History seizure hx Surgical History Right Knee Replacement [facility] 11/2015 Hospitalization History Acute Kidney Failure [facility] 07/2015
--- OUTSIDE RECORDS SUMMARY | 2017-09-15 05:38 | XMS REPORT ---
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 Medications Medication Code System Code Instructions Start Date End Date Status Dosage Carbamazepine [facility] [address]-21 400 mg Jul 08, 2014 1 Tablet 2 times per day cyclobenzaprine [facility] [address]-40 10 mg Aug 12, 2014 1 Tablet by Oral route 1 time per day qAM AND 2 Tablet by Oral route 1 time per day qHS Insulin Glargine [facility] [address]-35 100 UNIT/ML Subcutaneous 2 times a day 50 units Gabapentin [facility] [address]-12 300 mg Aug 27, 2012 1 Capsule by Oral route 1 time per day Methotrexate Sodium ND 0 2.5 mg Jul 08, 2014 8 Tablet by Oral route 1 time per week Augumet [facility] [address]-36 50-1000 MG Orally Twice a day 1 tablet with meals Tramadol HCl [facility] [address]-29 50 MG Orally 2 IN THE AM AND 2 IN THE EVENING Meloxicam [facility] [address]-10 15 MG Orally Once a day 1 tablet Mirtazapine [facility] [address]-15 15 MG TAKE 0.5- 1 TABLET BY ORAL ROUTE 1 TIME PER DAY AT HS Brintellix [facility] [address]-08 20 MG Orally Once a day 1 tablet Lisinopril-Hydrochlorothiazide [facility] [address]-03 10-12.5 mg Jul 08, 2014 1 Tablet by Oral route 2 times per day Folic Acid [facility] [address]-45 400 mcg Jul 08, 2014 2 Tablet by Oral route 1 time per day Procedures Procedure Coding System Code Date MH Office Visit, Est Pt., Level 3 CPT-4 93477 May 19, 2015 Vital Signs Date/Time: May 19, 2015 Cardiac Monitoring Heart Rate 100 bpm Weight 302.0 lbs Height 68.5 in BMI 45.25 Index Blood Pressure Diastolic 80 mmHg Blood Pressure Systolic 145 mmHg Results No Known Results Summary Purpose eClinicalWorks Submission
--- OUTSIDE RECORDS SUMMARY | 2017-09-15 05:38 | XMS REPORT ---
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
--- OUTSIDE RECORDS SUMMARY | 2017-09-15 05:38 | XMS REPORT ---
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
--- OUTSIDE RECORDS SUMMARY | 2017-09-15 05:39 | XMS REPORT ---
Author Author AUDREY LANDEROS [facility] eClinicalWorks Address Unknown Phone Unavailable Care Team Providers Care Radio Board Operator Name Role Phone AUDREY LANDEROS Unavailable Allergies No Known Allergies Problems Problem Type Condition Code Onset Dates Condition Status Assessment Major depressive disorder, recurrent, moderate F33.1 Active Problem Major depressive disorder, recurrent, moderate F33.1 Active Medications Medication Code System Code Instructions Start Date End Date Status Dosage Methotrexate Sodium NDC 0 2.5 MG Orally once weekly Jul 08, 2014 8 Tablet by Oral route 1 time per week Gabapentin [facility] [address]-92 300 mg Orally 3 times a day Aug 27, 2012 2 capsules Pristiq [facility] [address]-54 100 MG Orally Once a day 1 tablet Janumet [facility] [address]-88 50-1000 MG Orally Twice a day 1 tablet with meals Folic Acid [facility] [address]-55 1 MG Orally Once a day Jul 08, 2014 1 tablet Melatonin [facility] [address]-53 5 MG Orally Once a day 1 tablet Toujeo SoloStar [facility] [address]-80 300 UNIT/ML Subcutaneous not defined Tramadol HCl [facility] [address]-45 50 mg Orally 3 times a day 2 tablets Cyclobenzaprine HCl [facility] [address]-77 10 MG Orally Three times a day 1 tablet Mirtazapine [facility] [address]-48 15 MG TAKE 0.5- 1 TABLET BY ORAL ROUTE 1 TIME PER DAY AT HS Adderall XR [facility] [address]-12 5 mg Orally Once a day Jun 12, 2016 1 capsule in the morning Lisinopril-Hydrochlorothiazide [facility] [address]-50 10-12.5 mg Jul 08, 2014 1 Tablet by Oral route 2 times per day Procedures Procedure Coding System Code Date Office Visit, Est Pt., Level 2 CPT-4 81693 Jun 12, 2016 LAB NOT BILLED BY [facility] CPT-4 NOBLL Jun 12, 2016 [facility] VISIT ESTABLISHED PATIENT CPT-4 G0467 Jun 12, 2016 VENIPUNCT, ROUTINE* CPT-4 85016 Jun 12, 2016 Vital Signs Date/Time: Jun 12, 2016 Cardiac Monitoring Heart Rate 72 bpm Weight 283.5 lbs Height 68.5 in BMI 42.47 Index Blood Pressure Diastolic 84 mmHg Blood Pressure Systolic 126 mmHg Results No Known Results Summary Purpose eClinicalWorks Submission
--- OUTSIDE RECORDS SUMMARY | 2017-09-15 05:39 | XMS REPORT ---
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
--- OUTSIDE RECORDS SUMMARY | 2017-09-15 05:39 | XMS REPORT ---
Author Author DAMASO CUI Organization [facility] Address [address] [place] [address] Care Team Providers Care Food Clerk Name Role Phone DAMASO CUI Unavailable PROBLEMS Type Condition ICD9-CM Code [id number] Code Onset Dates Condition Status SNOMED Code Problem Psychophysiological insomnia F51.04 Active 921582456 Problem Major depressive disorder, recurrent episode, moderate F33.1 Active 698770915 Problem Anxiety state, unspecified F41.1 Active 578588309 ALLERGIES No Information SOCIAL HISTORY Never Assessed PLAN OF CARE Activity Details Follow Up She's going to reschedule on same day she comes back to see Dr. Gonzales. Reason:depression, anxiety VITAL SIGNS MEDICATIONS Unknown Medications RESULTS No Results PROCEDURES Procedure Date Ordered Result Body Site [facility] VISIT MENTAL HEALTH ESTAB PT Sep 26, 2016 Psychotherapy, patient &/family, 30 minutes, established patient Sep 26, 2016 IMMUNIZATIONS No Known Immunizations MEDICAL (GENERAL) HISTORY Type Description Date Medical History seizure hx Surgical History Right Knee Replacement Via [facility] 11/2015 Hospitalization History Acute Kidney Failure [facility] 07/2015
--- OUTSIDE RECORDS SUMMARY | 2017-09-15 05:39 | XMS REPORT ---
Author Author [facility]AND[facility]OS [facility] Address [address] [place] [address] Care Team Providers Care Floorwalker Name Role Phone GAURAV LANDEROSEDU Unavailable PROBLEMS Type Condition ICD9-CM Code EUO92-SA Code Onset Dates Condition Status SNOMED Code Problem Psychophysiological insomnia F51.04 Active 727675144 Problem Major depressive disorder, recurrent episode, moderate F33.1 Active 744247406 Problem Anxiety state, unspecified F41.1 Active 869552093 ALLERGIES Substance Reaction Event Type Date Status [place] renal failure Drug Allergy Sep, Active SulfADIAZINE itching Drug Allergy Sep, Active SOCIAL HISTORY Never Assessed PLAN OF CARE Activity Details Follow Up 4 Weeks Reason: VITAL SIGNS Height 68.5 in 2016-09-26 Weight 295.0 lbs 2016-09-26 Heart Rate 80 bpm 2016-09-26 Respiratory Rate 18 2016-09-26 BMI 44.20 kg/m2 2016-09-26 Blood pressure systolic 100 mmHg 2016-09-26 Blood pressure diastolic 63 mmHg 2016-09-26 MEDICATIONS Medication Instructions Dosage Frequency Start Date End Date Duration Status Folic Acid 1 MG Orally Once a day 1 tablet 24h Jul, Active Cyclobenzaprine HCl 10 MG Orally Three times a day 1 tablet 8h Active Gabapentin 300 mg Orally 3 times a day 2 capsules 8h Aug, Active Melatonin 5 MG Orally Once a day 1 tablet 24h Active Pristiq 100 MG Orally Once a day 1 tablet 24h Active Methotrexate Sodium 2.5 MG Orally once weekly 8 Tablet by Oral route 1 time per week Jul, Active Lisinopril-Hydrochlorothiazide 10-12.5 mg 1 Tablet by Oral route 2 times per day Jul, Active Tramadol HCl 50 mg Orally 3 times a day 2 tablets 8h Active Trazodone HCl 50 MG Orally Once a day 1 tablet at bedtime as needed 24h Sep, 30 day(s) Active Janumet 50-1000 MG Orally Twice a day 1 tablet with meals 12h Active Toujeo SoloStar 300 UNIT/ML Active RESULTS No Results PROCEDURES Procedure Date Ordered Result Body Site [facility] VISIT ESTABLISHED PATIENT Sep 26, 2016 IMMUNIZATIONS No Known Immunizations MEDICAL (GENERAL) HISTORY Type Description Date Medical History seizure hx Surgical History Right Knee Replacement Via [facility] 11/2015 Hospitalization History Acute Kidney Failure [facility] 07/2015
--- OUTSIDE RECORDS SUMMARY | 2017-09-15 05:39 | XMS REPORT ---
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
--- OUTSIDE RECORDS SUMMARY | 2017-09-15 05:39 | XMS REPORT ---
Author Author DAMASO CUI Organization [employer] Address Unknown Phone Unavailable Care Team Providers Care [employer] Operator Name Role Phone DAMASO CUI CP Unavailable Allergies No Known Allergies Problems Problem Type Condition ICD-9 Code Onset Dates Condition Status Assessment Major depressive disorder, recurrent episode, moderate 296.32 Active Problem Major depressive disorder, recurrent episode, moderate 296.32 Active Medications No Known Medications Procedures Procedure Coding System Code Date Psychotherapy, patient &/family, 45 minutes, established patient CPT-4 75222 Apr 14, 2015 Results No Known Results Summary Purpose [employer] Submission
--- OUTSIDE RECORDS SUMMARY | 2017-09-15 05:39 | XMS REPORT ---
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
--- OUTSIDE RECORDS SUMMARY | 2017-09-15 05:40 | XMS REPORT | Continuity of Care Document ---
Author Author [facility] Address Unknown Phone Unavailable Allergies Active Description Code Type Severity Reaction Onset Reported/Identified Relationship to Patient Clinical Status Yes sulfa drug Drug Allergy 01/29/2011 Yes lithium [id number] Drug Allergy Severe SHUT KIDNEYS DO 09/09/2017 Yes Sulfa (Sulfonamide Antibiotics) [id number] Drug Allergy Mild ITCHING;RASH 09/09/2017 Medications There is no data. 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30 MAJOR DEPRESSIVE AFFECTIVE DISORDER RECURRENT EPISODE UNSPECIFIED DEGREE 02/23/2008 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 02/23/2008 KAT MCKEON DDS 296.30 MAJOR DEPRESSIVE AFFECTIVE DISORDER RECURRENT EPISODE UNSPECIFIED DEGREE 02/23/2008 KAT MCKEON DDS 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 02/23/2008 MARY CARMEN GUTHRIE MD 296.30 MAJOR DEPRESSIVE AFFECTIVE DISORDER RECURRENT EPISODE UNSPECIFIED DEGREE 02/23/2008 MARY CARMEN GUTHRIE MD 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 02/23/2008 DAMASO CUI PHD 296.30 MAJOR DEPRESSIVE AFFECTIVE DISORDER RECURRENT EPISODE UNSPECIFIED DEGREE 02/23/2008 DAMASO CUI PHD 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 02/23/2008 MARY CARMEN GUTHRIE MD 296.30 MAJOR DEPRESSIVE AFFECTIVE DISORDER RECURRENT EPISODE UNSPECIFIED DEGREE 02/23/2008 MARY CARMEN GUTHRIE MD 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 02/23/2008 SHASTA ERGONOMIST, MIQUEL 296.30 MAJOR DEPRESSIVE AFFECTIVE DISORDER RECURRENT EPISODE UNSPECIFIED DEGREE 02/23/2008 SHASTA ERGONOMIST, MIQUEL 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 02/23/2008 DAMASO CUI PHD 296.30 MAJOR DEPRESSIVE AFFECTIVE DISORDER RECURRENT EPISODE UNSPECIFIED DEGREE 02/23/2008 DAMASO CUI PHD 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 02/23/2008 SHASTA ERGONOMIST, MIQUEL 296.30 MAJOR DEPRESSIVE AFFECTIVE DISORDER RECURRENT EPISODE UNSPECIFIED DEGREE 02/23/2008 SHASTA ERGONOMIST, MIQUEL 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 02/23/2008 SHASTA ERGONOMIST, MIQUEL 296.30 MAJOR DEPRESSIVE AFFECTIVE DISORDER RECURRENT EPISODE UNSPECIFIED DEGREE 02/23/2008 SHASTA ERGONOMIST, MIQUEL 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 02/23/2008 SHASTA ERGONOMIST, MIQUEL 296.30 MAJOR DEPRESSIVE AFFECTIVE DISORDER RECURRENT EPISODE UNSPECIFIED DEGREE 02/23/2008 SHASTA ERGONOMIST, MQIUEL 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 02/23/2008 DAMASO CUI PHD 296.30 MAJOR DEPRESSIVE AFFECTIVE DISORDER RECURRENT EPISODE UNSPECIFIED DEGREE 02/23/2008 DAMASO CUI PHD 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 02/23/2008 SHASTA ERGONOMIST, MIQUEL 296.30 MAJOR DEPRESSIVE AFFECTIVE DISORDER RECURRENT EPISODE UNSPECIFIED DEGREE 02/23/2008 SHASTA POMPA, MIQUEL 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 02/23/2008 DAMASO CUI PHD 296.30 MAJOR DEPRESSIVE AFFECTIVE DISORDER RECURRENT EPISODE UNSPECIFIED DEGREE 02/23/2008 DAMASO CUI PHD 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 03/26/2008 DAMASO CUI PHD 345.90 EPILEPSY UNSPECIFIED WITHOUT INTRACTABLE EPILEPSY 03/26/2008 DAMASO CUI PHD 729.1 MYALGIA AND MYOSITIS UNSPECIFIED 03/26/2008 DAMASO CUI PHD 780.79 OTHER MALAISE AND FATIGUE 03/26/2008 DAMASO CUI PHD V58.69 LONG-TERM (CURRENT) USE OF OTHER MEDICATIONS 03/26/2008 MICHELA ARGUELLES DO 345.90 EPILEPSY UNSPECIFIED WITHOUT INTRACTABLE EPILEPSY 03/26/2008 MICHELA ARGUELLES DO 729.1 MYALGIA AND MYOSITIS UNSPECIFIED 03/26/2008 MICHELA ARGUELLES DO 780.79 OTHER MALAISE AND FATIGUE 03/26/2008 MICHELA ARGUELLES DO V58.69 LONG-TERM (CURRENT) USE OF OTHER MEDICATIONS 03/26/2008 345.90 EPILEPSY UNSPECIFIED WITHOUT INTRACTABLE EPILEPSY 03/26/2008 729.1 MYALGIA AND MYOSITIS UNSPECIFIED 03/26/2008 780.79 OTHER MALAISE AND FATIGUE 03/26/2008 V58.69 LONG-TERM ( CURRENT) USE OF OTHER MEDICATIONS 03/26/2008 345.90 EPILEPSY UNSPECIFIED WITHOUT INTRACTABLE EPILEPSY 03/26/2008 729.1 MYALGIA AND MYOSITIS UNSPECIFIED 03/26/2008 780.79 OTHER MALAISE AND FATIGUE 03/26/2008 V58.69 LONG-TERM ( CURRENT) USE OF OTHER MEDICATIONS 03/26/2008 MICHELA ARGUELLES DO 345.90 EPILEPSY UNSPECIFIED WITHOUT INTRACTABLE EPILEPSY 03/26/2008 MICHELA ARGUELLES DO 729.1 MYALGIA AND MYOSITIS UNSPECIFIED 03/26/2008 MICHELA ARGUELLES DO 780.79 OTHER MALAISE AND FATIGUE 03/26/2008 MICHELA ARGUELLES DO V58.69 LONG-TERM (CURRENT) USE OF OTHER MEDICATIONS 03/26/2008 345.90 EPILEPSY UNSPECIFIED WITHOUT INTRACTABLE EPILEPSY 03/26/2008 729.1 MYALGIA AND MYOSITIS UNSPECIFIED 03/26/2008 780.79 OTHER MALAISE AND FATIGUE 03/26/2008 V58.69 LONG-TERM ( CURRENT) USE OF OTHER MEDICATIONS 03/26/2008 MIKE RICHTERS, KAT J 345.90 EPILEPSY UNSPECIFIED WITHOUT INTRACTABLE EPILEPSY 03/26/2008 WHITE DDSMASONON J 729.1 MYALGIA AND MYOSITIS UNSPECIFIED 03/26/2008 WHITE DDS, KAT J 780.79 OTHER MALAISE AND FATIGUE 03/26/2008 WHITE DDS, KAT J V58.69 LONG-TERM (CURRENT) USE OF OTHER MEDICATIONS 03/26/2008 MARY CARMEN GUTHRIE MD 345.90 EPILEPSY UNSPECIFIED WITHOUT INTRACTABLE EPILEPSY 03/26/2008 MARY CARMEN GUTHRIE MD 729.1 MYALGIA AND MYOSITIS UNSPECIFIED 03/26/2008 MARY CARMEN GUTHRIE MD 780.79 OTHER MALAISE AND FATIGUE 03/26/2008 MARY CARMEN GUTHRIE MD V58.69 LONG-TERM (CURRENT) USE OF OTHER MEDICATIONS 03/26/2008 DAMASO CUI PHD 345.90 EPILEPSY UNSPECIFIED WITHOUT INTRACTABLE EPILEPSY 03/26/2008 DAMASO CUI PHD 729.1 MYALGIA AND MYOSITIS UNSPECIFIED 03/26/2008 DAMASO CUI PHD 780.79 OTHER MALAISE AND FATIGUE 03/26/2008 DAMASO CUI PHD V58.69 LONG-TERM (CURRENT) USE OF OTHER MEDICATIONS 03/26/2008 MARY CARMEN GUTHRIE MD 345.90 EPILEPSY UNSPECIFIED WITHOUT INTRACTABLE EPILEPSY 03/26/2008 MARY CARMEN GUTHRIE MD 729.1 MYALGIA AND MYOSITIS UNSPECIFIED 03/26/2008 MARY CARMEN GUTHRIE MD 780.79 OTHER MALAISE AND FATIGUE 03/26/2008 MARY CARMEN GUTHRIE MD V58.69 LONG-TERM (CURRENT) USE OF OTHER MEDICATIONS 03/26/2008 SHASTA ERGONOMIST, MIQUEL 345.90 EPILEPSY UNSPECIFIED WITHOUT INTRACTABLE EPILEPSY 03/26/2008 SHASTA ERGONOMIST, MIQUEL 729.1 MYALGIA AND MYOSITIS UNSPECIFIED 03/26/2008 SHASTA ERGONOMIST, MIQUEL 780.79 OTHER MALAISE AND FATIGUE 03/26/2008 SHASTA ERGONOMIST, MIQUEL V58.69 LONG-TERM (CURRENT) USE OF OTHER MEDICATIONS 03/26/2008 DAMASO CUI PHD 345.90 EPILEPSY UNSPECIFIED WITHOUT INTRACTABLE EPILEPSY 03/26/2008 DAMASO CUI PHD 729.1 MYALGIA AND MYOSITIS UNSPECIFIED 03/26/2008 DAMASO CUI PHD 780.79 OTHER MALAISE AND FATIGUE 03/26/2008 DAMASO CUI PHD V58.69 LONG-TERM (CURRENT) USE OF OTHER MEDICATIONS 03/26/2008 SHASTA ERGONOMIST, MIQUEL 345.90 EPILEPSY UNSPECIFIED WITHOUT INTRACTABLE EPILEPSY 03/26/2008 SHASTA ERGONOMIST, MIQUEL 729.1 MYALGIA AND MYOSITIS UNSPECIFIED 03/26/2008 SHASTA ERGONOMIST, MIQUEL 780.79 OTHER MALAISE AND FATIGUE 03/26/2008 SHASTA ERGONOMIST, MIQUEL V58.69 LONG-TERM (CURRENT) USE OF OTHER MEDICATIONS 03/26/2008 SHASTA ERGONOMIST, MIQUEL 345.90 EPILEPSY UNSPECIFIED WITHOUT INTRACTABLE EPILEPSY 03/26/2008 SHASTA ERGONOMIST, MIQUEL 729.1 MYALGIA AND MYOSITIS UNSPECIFIED 03/26/2008 SHASTA ERGONOMIST, MIQUEL 780.79 OTHER MALAISE AND FATIGUE 03/26/2008 SHASTA ERGONOMIST, MIQUEL V58.69 LONG-TERM (CURRENT) USE OF OTHER MEDICATIONS 03/26/2008 SHASTA ERGONOMIST, MIQUEL 345.90 EPILEPSY UNSPECIFIED WITHOUT INTRACTABLE EPILEPSY 03/26/2008 SHASTA ERGONOMIST, MIQUEL 729.1 MYALGIA AND MYOSITIS UNSPECIFIED 03/26/2008 SHASTA ERGONOMIST, MIQUEL 780.79 OTHER MALAISE AND FATIGUE 03/26/2008 SHASTA ERGONOMIST, MIQUEL V58.69 LONG-TERM (CURRENT) USE OF OTHER MEDICATIONS 03/26/2008 DAMASO CUI PHD 345.90 EPILEPSY UNSPECIFIED WITHOUT INTRACTABLE EPILEPSY 03/26/2008 DAMASO CUI PHD 729.1 MYALGIA AND MYOSITIS UNSPECIFIED 03/26/2008 DAMASO CUI PHD 780.79 OTHER MALAISE AND FATIGUE 03/26/2008 DAMASO CUI PHD V58.69 LONG-TERM (CURRENT) USE OF OTHER MEDICATIONS 03/26/2008 SHASTA ERGONOMIST, MIQUEL 345.90 EPILEPSY UNSPECIFIED WITHOUT INTRACTABLE EPILEPSY 03/26/2008 SHASTA ERGONOMIST, MIQUEL 729.1 MYALGIA AND MYOSITIS UNSPECIFIED 03/26/2008 SHASTA ERGONOMIST, MIQUEL 780.79 OTHER MALAISE AND FATIGUE 03/26/2008 SHASTA ERGONOMIST, MIQUEL V58.69 LONG-TERM (CURRENT) USE OF OTHER MEDICATIONS 03/26/2008 DAMASO CUI PHD 345.90 EPILEPSY UNSPECIFIED WITHOUT INTRACTABLE EPILEPSY 03/26/2008 DAMASO CUI PHD 729.1 MYALGIA AND MYOSITIS UNSPECIFIED 03/26/2008 DAMASO CUI PHD 780.79 OTHER MALAISE AND FATIGUE 03/26/2008 DAMASO CUI PHD V58.69 LONG-TERM (CURRENT) USE OF OTHER MEDICATIONS 04/26/2008 DAMASO CUI PHD 316 PF PSYCHIC FACTORS MED COND 04/26/2008 MICHELA ARGUELLES DO 316 PF PSYCHIC FACTORS MED COND 04/26/2008 316 PF PSYCHIC FACTORS MED COND 04/26/2008 316 PF PSYCHIC FACTORS MED COND 04/26/2008 MICHELA ARGUELLES DO 316 PF PSYCHIC FACTORS MED COND 04/26/2008 316 PF PSYCHIC FACTORS MED COND 04/26/2008 WHITE NEELAMS, KAT J 316 PF PSYCHIC FACTORS MED COND 04/26/2008 MARY CARMEN GUTHRIE MD 316 PF PSYCHIC FACTORS MED COND 04/26/2008 DAMASO CUI PHD 316 PF PSYCHIC FACTORS MED COND 04/26/2008 MARY CARMEN GUTHRIE MD 316 PF PSYCHIC FACTORS MED COND 04/26/2008 SHASTA ERGONOMIST, MIQUEL 316 PF PSYCHIC FACTORS MED COND 04/26/2008 DAMASO CUI PHD 316 PF PSYCHIC FACTORS MED COND 04/26/2008 SHASTA ERGONOMIST, MIQUEL 316 PF PSYCHIC FACTORS MED COND 04/26/2008 SHASTA ERGONOMIST, MIQUEL 316 PF PSYCHIC FACTORS MED COND 04/26/2008 SHASTA ERGONOMIST, MIQUEL 316 PF PSYCHIC FACTORS MED COND 04/26/2008 DAMASO CUI PHD 316 PF PSYCHIC FACTORS MED COND 04/26/2008 SHASTA ERGONOMIST, MIQUEL 316 PF PSYCHIC FACTORS MED COND 04/26/2008 DAMASO CUI PHD 316 PF PSYCHIC FACTORS MED COND 10/15/2008 DAMASO CUI PHD 307.47 SI DYSSOMNIA NOS 10/15/2008 [place] MICHELA Sierra 307.47 SI DYSSOMNIA NOS 10/15/2008 307.47 SI DYSSOMNIA NOS 10/15/2008 307.47 SI DYSSOMNIA NOS 10/15/2008 [place] MICHELA Sierra 307.47 SI DYSSOMNIA NOS 10/15/2008 307.47 SI DYSSOMNIA NOS 10/15/2008 WHITE DDS, KAT J 307.47 SI DYSSOMNIA NOS 10/15/2008 MARY CARMEN GUTHRIE MD 307.47 SI DYSSOMNIA NOS 10/15/2008 DAMASO CUI PHD 307.47 SI DYSSOMNIA NOS 10/15/2008 MARY CARMEN GUTHRIE MD 307.47 SI DYSSOMNIA NOS 10/15/2008 SHASTA POMPA, MIQUEL 307.47 SI DYSSOMNIA NOS 10/15/2008 DAMASO CUI PHD 307.47 SI DYSSOMNIA NOS 10/15/2008 SHASTA ERGONOMIST, MIQUEL 307.47 SI DYSSOMNIA NOS 10/15/2008 SHASTA ERGONOMIST, MIQUEL 307.47 SI DYSSOMNIA NOS 10/15/2008 SHASTA ERGONOMIST, MIQUEL 307.47 SI DYSSOMNIA NOS 10/15/2008 DAMASO CUI PHD 307.47 SI DYSSOMNIA NOS 10/15/2008 SHASTA ERGONOMIST, MIQUEL 307.47 SI DYSSOMNIA NOS 10/15/2008 DAMASO CUI PHD 307.47 SI DYSSOMNIA NOS 01/04/2009 DAMASO CUI PHD 294.9 OR COG DIS NOS 01/04/2009 MICHELA ARGUELLES DO 294.9 OR COG DIS NOS 01/04/2009 294.9 OR COG DIS NOS 01/04/2009 294.9 OR COG DIS NOS 01/04/2009 MICHELA ARGUELLES DO 294.9 OR COG DIS NOS 01/04/2009 294.9 OR COG DIS NOS 01/04/2009 KAT MCKEON DDS 294.9 OR COG DIS NOS 01/04/2009 MARY CARMEN GUTHRIE MD 294.9 OR COG DIS NOS 01/04/2009 DAMASO CUI PHD 294.9 OR COG DIS NOS 01/04/2009 MARY CARMEN GUTHRIE MD 294.9 OR COG DIS NOS 01/04/2009 SHASTA ERGONOMIST, MIQUEL 294.9 OR COG DIS NOS 01/04/2009 DAMASO CUI PHD 294.9 OR COG DIS NOS 01/04/2009 SHASTA ERGONOMIST, MIQUEL 294.9 OR COG DIS NOS 01/04/2009 SHASTA ERGONOMIST, MIQUEL 294.9 OR COG DIS NOS 01/04/2009 SHASTA ERGONOMIST, MIQUEL 294.9 OR COG DIS NOS 01/04/2009 DAMASO CUI PHD 294.9 OR COG DIS NOS 01/04/2009 SHASTA ERGONOMIST, MIQUEL 294.9 OR COG DIS NOS 01/04/2009 DAMASO CUI PHD 294.9 OR COG DIS NOS 06/14/2010 DAMASO CUI PHD 293.83 OR ORG ANX SYN MOOD DISORDER 06/14/2010 DAMASO CUI PHD 301.83 BORDERLINE PERSONALITY DISORDER 06/14/2010 WERDER DO, MICHELA F 293.83 OR ORG ANX SYN MOOD DISORDER 06/14/2010 WERDER DO, MICHELA F 301.83 BORDERLINE PERSONALITY DISORDER 06/14/2010 293.83 OR ORG ANX SYN MOOD DISORDER 06/14/2010 301.83 BORDERLINE PERSONALITY DISORDER 06/14/2010 293.83 OR ORG ANX SYN MOOD DISORDER 06/14/2010 301.83 BORDERLINE PERSONALITY DISORDER 06/14/2010 WERDER DO, MICHELA F 293.83 OR ORG ANX SYN MOOD DISORDER 06/14/2010 WERDER DO, MICHELA F 301.83 BORDERLINE PERSONALITY DISORDER 06/14/2010 293.83 OR ORG ANX SYN MOOD DISORDER 06/14/2010 301.83 BORDERLINE PERSONALITY DISORDER 06/14/2010 WHITE DDS, KAT J 293.83 OR ORG ANX SYN MOOD DISORDER 06/14/2010 WHITE DDS, KAT J 301.83 BORDERLINE PERSONALITY DISORDER 06/14/2010 MARY CARMEN GUTHRIE MD 293.83 OR ORG ANX SYN MOOD DISORDER 06/14/2010 MARY CARMEN GUTHRIE MD 301.83 BORDERLINE PERSONALITY DISORDER 06/14/2010 DAMASO CUI PHD 293.83 OR ORG ANX SYN MOOD DISORDER 06/14/2010 DAMASO CUI PHD 301.83 BORDERLINE PERSONALITY DISORDER 06/14/2010 MARY CARMEN GUTHRIE MD 293.83 OR ORG ANX SYN MOOD DISORDER 06/14/2010 MARY CARMEN GTUHRIE MD 301.83 BORDERLINE PERSONALITY DISORDER 06/14/2010 SHASTA ERGONOMIST, MIQUEL 293.83 OR ORG ANX SYN MOOD DISORDER 06/14/2010 SHASTA ERGONOMIST, MIQUEL 301.83 BORDERLINE PERSONALITY DISORDER 06/14/2010 DAMASO CUI PHD 293.83 OR ORG ANX SYN MOOD DISORDER 06/14/2010 DAMASO CUI PHD 301.83 BORDERLINE PERSONALITY DISORDER 06/14/2010 SHASTA ERGONOMIST, MIQUEL 293.83 OR ORG ANX SYN MOOD DISORDER 06/14/2010 SHASTA ERGONOMIST, MIQUEL 301.83 BORDERLINE PERSONALITY DISORDER 06/14/2010 SHASTA ERGONOMIST, MIQUEL 293.83 OR ORG ANX SYN MOOD DISORDER 06/14/2010 SHASTA ERGONOMIST, MIQUEL 301.83 BORDERLINE PERSONALITY DISORDER 06/14/2010 SHASTA ERGONOMIST, MIQUEL 293.83 OR ORG ANX SYN MOOD DISORDER 06/14/2010 SHASTA ERGONOMIST, MIQUEL 301.83 BORDERLINE PERSONALITY DISORDER 06/14/2010 DAMASO CUI PHD 293.83 OR ORG ANX SYN MOOD DISORDER 06/14/2010 DAMASO UCI PHD 301.83 BORDERLINE PERSONALITY DISORDER 06/14/2010 SHASTA ERGONOMIST, MIQUEL 293.83 OR ORG ANX SYN MOOD DISORDER 06/14/2010 SHASTA ERGONOMIST, MIQUEL 301.83 BORDERLINE PERSONALITY DISORDER 06/14/2010 DAMASO CUI PHD 293.83 OR ORG ANX SYN MOOD DISORDER 06/14/2010 DAMASO CUI PHD 301.83 BORDERLINE PERSONALITY DISORDER 11/10/2013 MARY CARMEN GUTHRIE MD 296.33 MO DEPRESSIVE RECURRENT SEVERE W/O PSYCHOTIC BEHAVIOR 11/10/2013 DAMASO CUI PHD 296.33 MO DEPRESSIVE RECURRENT SEVERE W/O PSYCHOTIC BEHAVIOR 11/10/2013 MARY CARMEN GUTHRIE MD 296.33 MO DEPRESSIVE RECURRENT SEVERE W/O PSYCHOTIC BEHAVIOR 11/10/2013 SHASTA ERGONOMIST, MIQUEL 296.33 MO DEPRESSIVE RECURRENT SEVERE W/O PSYCHOTIC BEHAVIOR 11/10/2013 SHASTA ERGONOMIST, MIQUEL 296.33 MO DEPRESSIVE RECURRENT SEVERE W/O PSYCHOTIC BEHAVIOR 11/10/2013 SHASTA ALETHA MIQUEL 296.33 MO DEPRESSIVE RECURRENT SEVERE W/O PSYCHOTIC BEHAVIOR 11/10/2013 SHASTA ALETHA MIQUEL 296.33 MO DEPRESSIVE RECURRENT SEVERE W/O PSYCHOTIC BEHAVIOR 11/10/2013 DAMASO CUI PHD 296.33 MO DEPRESSIVE RECURRENT SEVERE W/O PSYCHOTIC BEHAVIOR 11/10/2013 SHASTA ERGONOMIST, MIQUEL 296.33 MO DEPRESSIVE RECURRENT SEVERE W/O PSYCHOTIC BEHAVIOR 11/10/2013 DAMASO CUI PHD 296.33 MO DEPRESSIVE RECURRENT SEVERE W/O PSYCHOTIC BEHAVIOR 11/23/2013 DAMASO CUI PHD 296.32 MO DEPRESSIVE RECURRENT MODERATE 11/23/2013 MARY CARMEN GUTHRIE MD 296.32 MO DEPRESSIVE RECURRENT MODERATE 11/23/2013 SHASTA ERGONOMIST, MIQUEL 296.32 MO DEPRESSIVE RECURRENT MODERATE 11/23/2013 SHASTA ERGONOMIST, MIQUEL 296.32 MO DEPRESSIVE RECURRENT MODERATE 11/23/2013 SHASTA ERGONOMIST, MIQUEL 296.32 MO DEPRESSIVE RECURRENT MODERATE 11/23/2013 SHASTA ERGONOMIST, MIQUEL 296.32 MO DEPRESSIVE RECURRENT MODERATE 11/23/2013 DAMASO CUI PHD 296.32 MO DEPRESSIVE RECURRENT MODERATE 11/23/2013 SHASTATEETEE POMPA MIQUEL 296.32 MO DEPRESSIVE RECURRENT MODERATE 11/23/2013 BASILIA PHD, DAMASO D 296.32 MO DEPRESSIVE RECURRENT MODERATE 02/03/2014 EDWINA VARGHESE ERGONOMIST Ot 564.1 IRRITABLE BOWEL SYNDROME 02/03/2014 EDWINA VARGHESE ERGONOMIST Ot 716.90 ARTHROPATHY NOS-UNSPEC 02/03/2014 EDWINA VARGHESE ERGONOMIST Ot 729.1 MYALGIA AND MYOSITIS NOS 02/03/2014 EDWINA VARGHESE ERGONOMIST Ot 729.5 PAIN IN LIMB 02/03/2014 EDWINA VARGHESE ERGONOMIST Ot 959.6 HIP THIGH INJURY NOS 02/03/2014 EDWINA VARGHESE ERGONOMIST Ot E000.8 OTHER EXTERNAL CAUSE STATUS 02/03/2014 EDWINA VARGHESE ERGONOMIST Ot E029.9 OTHER ACTIVITY 02/03/2014 EDWINA VARGHESE APRN Ot E849.[address] NEC 02/03/2014 EDWINA VARGHESE APRN Ot E885.9 FALL FROM SLIPPING, TRIPPING, OR STUMBLI 02/03/2014 EDWINA VARGHESE APRN Ot V58.67 LONG-TERM (CURRENT) USE OF INSULIN 02/03/2014 EDWINA VARGHESE APRN Ot V58.69 OT MED,,CURRENT USE 06/29/2014 Ot 717.7 06/29/2014 Ot V72.83 06/29/2014 Ot V74.8 06/29/2014 Ot 278.01 06/29/2014 Ot 716.90 06/29/2014 Ot 788.30 06/29/2014 Ot 788.41 06/29/2014 Ot V10.3 06/29/2014 Ot V13.01 06/29/2014 Ot V58.67 06/29/2014 Ot V58.69 06/29/2014 Ot V67.1 06/29/2014 Ot V67.2 06/29/2014 Ot 625.8 06/29/2014 Ot 594.2 06/29/2014 Ot 788.30 06/29/2014 Ot V72.81 06/29/2014 Ot V72.83 06/29/2014 Ot 625.8 06/29/2014 Ot 788.30 06/29/2014 Ot 791.9 06/29/2014 Ot V72.83 06/29/2014 Ot V74.8 06/29/2014 Ot 594.1 06/29/2014 Ot 625.8 06/29/2014 Ot V45.89 06/29/2014 Ot V10.3 06/29/2014 Ot V58.69 06/29/2014 Ot V67.1 06/29/2014 Ot V67.2 06/29/2014 Ot V10.3 06/29/2014 Ot V58.69 06/29/2014 Ot V67.1 06/29/2014 Ot V67.2 06/29/2014 Ot 278.00 06/29/2014 Ot 311 06/29/2014 Ot V10.3 06/29/2014 Ot V58.69 06/29/2014 Ot V67.1 06/29/2014 Ot V67.2 06/29/2014 EDMONDJUSTO BATES N Ot 696.1 06/29/2014 EDMONDJUSTO BATES N Ot 729.1 06/29/2014 EDMONDJUSTO BATES N Ot V10.3 06/29/2014 EDMONDJUSTO BATES N Ot V58.69 06/29/2014 EDMONDJUSTO BATES N Ot V67.1 06/29/2014 EDMONDJUSTO BATES N Ot V67.2 07/26/2014 EDMONDJUSTO BATES N Ot 250.00 07/26/2014 EDMONDJUSTO BATES N Ot 696.1 07/26/2014 EDMONDJUSTO BATES N Ot 729.1 07/26/2014 EDMONDJUSTO BATES N Ot V10.3 07/26/2014 EDMONDJUSTO BATES N Ot V58.67 07/26/2014 EDMONDJUSTO BATES N Ot V58.69 07/26/2014 EDMONDJUSTO BATES N Ot V67.1 07/26/2014 EDMONDJUSTO BATES N Ot V67.2 09/22/2014 Ot 278.01 09/22/2014 Ot 716.90 09/22/2014 Ot 788.30 09/22/2014 Ot 788.41 09/22/2014 Ot V10.3 09/22/2014 Ot V13.01 09/22/2014 Ot V58.67 09/22/2014 Ot V58.69 09/22/2014 Ot V67.1 09/22/2014 Ot V67.2 09/22/2014 Ot 625.8 09/22/2014 Ot 594.2 09/22/2014 Ot 788.30 09/22/2014 Ot V72.81 09/22/2014 Ot V72.83 09/22/2014 Ot 625.8 09/22/2014 Ot 788.30 09/22/2014 Ot 791.9 09/22/2014 Ot V72.83 09/22/2014 Ot V74.8 09/22/2014 Ot 594.1 09/22/2014 Ot 625.8 09/22/2014 Ot V45.89 09/22/2014 Ot V10.3 09/22/2014 Ot V58.69 09/22/2014 Ot V67.1 09/22/2014 Ot V67.2 09/22/2014 Ot V10.3 09/22/2014 Ot V58.69 09/22/2014 Ot V67.1 09/22/2014 Ot V67.2 09/22/2014 Ot 278.00 09/22/2014 Ot 311 09/22/2014 Ot V10.3 09/22/2014 Ot V58.69 09/22/2014 Ot V67.1 09/22/2014 Ot V67.2 09/22/2014 EDMOND, JUSTO N Ot 696.1 09/22/2014 EDMOND, JUSTO N Ot 729.1 09/22/2014 EDMOND, JUSTO N Ot V10.3 09/22/2014 EDMOND, JUSTO N Ot V58.69 09/22/2014 EDMOND, JUSTO N Ot V67.1 09/22/2014 EDMOND, JUSTO N Ot V67.2 09/22/2014 EDMOND, JUSTO N Ot 250.00 09/22/2014 EDMOND, JUSTO N Ot 696.1 09/22/2014 EDMOND, JUSTO N Ot 729.1 09/22/2014 EDMOND, JUSTO N Ot V10.3 09/22/2014 EDMOND, BOBAN N Ot V58.67 09/22/2014 EDMOND, BOBAN N Ot V58.69 09/22/2014 DEMOND, JUSTO N Ot V67.1 09/22/2014 EDMOND, BOBAN N Ot V67.2 09/22/2014 Ot 278.01 09/22/2014 Ot 716.90 09/22/2014 Ot 788.30 09/22/2014 Ot 788.41 09/22/2014 Ot V10.3 09/22/2014 Ot V13.01 09/22/2014 Ot V58.67 09/22/2014 Ot V58.69 09/22/2014 Ot V67.1 09/22/2014 Ot V67.2 09/22/2014 Ot 625.8 09/22/2014 Ot 594.2 09/22/2014 Ot 788.30 09/22/2014 Ot V72.81 09/22/2014 Ot V72.83 09/22/2014 Ot 625.8 09/22/2014 Ot 788.30 09/22/2014 Ot 791.9 09/22/2014 Ot V72.83 09/22/2014 Ot V74.8 09/22/2014 Ot 594.1 09/22/2014 Ot 625.8 09/22/2014 Ot V45.89 09/22/2014 Ot V10.3 09/22/2014 Ot V58.69 09/22/2014 Ot V67.1 09/22/2014 Ot V67.2 09/22/2014 Ot V10.3 09/22/2014 Ot V58.69 09/22/2014 Ot V67.1 09/22/2014 Ot V67.2 09/22/2014 Ot 278.00 09/22/2014 Ot 311 09/22/2014 Ot V10.3 09/22/2014 Ot V58.69 09/22/2014 Ot V67.1 09/22/2014 Ot V67.2 09/22/2014 EDMONDJUSTO BATES N Ot 696.1 09/22/2014 EDMOND, JUSTO N Ot 729.1 09/22/2014 EDMOND, JUSTO N Ot V10.3 09/22/2014 EDMOND, JUSTO N Ot V58.69 09/22/2014 EDMOND, JUSTO N Ot V67.1 09/22/2014 EDMOND, JUSTO N Ot V67.2 09/22/2014 EDMOND, JUSTO N Ot 250.00 09/22/2014 EDMOND, JUSTO N Ot 696.1 09/22/2014 EDMOND, JUSTO N Ot 729.1 09/22/2014 EDMOND, JUSTO N Ot V10.3 09/22/2014 EDMOND, JUSTO N Ot V58.67 09/22/2014 EDMOND, JUSTO N Ot V58.69 09/22/2014 JUSTO PRUITT Ot V67.1 09/22/2014 JUSTO PRUITT Ot V67.2 09/27/2014 Ot 250.00 DIAB JULIO WO COMPL, TYPE II OR UNSPEC TY 09/27/2014 Ot 714.0 RHEUMATOID ARTHRITIS 09/27/2014 Ot 735.0 HALLUX VALGUS 09/27/2014 Ot 735.4 OTHER HAMMER TOE 09/27/2014 Ot 754.52 METATARSUS PRIMUS VARUS 09/27/2014 Ot V57.1 PHYSICAL THERAPY NEC 09/27/2014 Ot V58.69 OT MED,LT, CURRENT USE 11/10/2015 ALESSIO VERONICA, GATITO Rehman Ot M17.11 UNILATERAL PRIMARY OSTEOARTHRITIS, RIGHT 11/10/2015 GATITO MCCALLUM MD Ot R53.83 OTHER FATIGUE 11/10/2015 GATITO MCCALLUM MD Ot Z01.812 ENCOUNTER FOR PREPROCEDURAL LABORATORY E 11/10/2015 GATITO MCCALLUM MD Ot Z01.818 ENCOUNTER FOR OTHER PREPROCEDURAL EXAMIN 11/10/2015 GATITO MCCALLUM MD Ot Z11.2 ENCOUNTER FOR SCREENING FOR OTHER BACTER 11/11/2015 GATITO MCCALLUM MD Ot M17.11 11/11/2015 GATITO MCCALLUM MD Ot R53.83 11/11/2015 GATITO MCCALLUM MD Ot Z01.812 11/11/2015 GATITO MCCALLUM MD Ot Z01.818 11/11/2015 GATITO MCCALLUM MD Ot Z11.2 11/19/2015 GATITO MCCALLUM MD Ot E11.9 TYPE 2 DIABETES MELLITUS WITHOUT COMPLIC 11/19/2015 GATITO MCCALLUM MD Ot F32.9 MAJOR DEPRESSIVE DISORDER, SINGLE EPISOD 11/19/2015 GATITO MCCALLUM MD Ot M17.11 UNILATERAL PRIMARY OSTEOARTHRITIS, RIGHT 11/19/2015 GATITO MCCALLUM MD Ot M17.9 OSTEOARTHRITIS OF KNEE, UNSPECIFIED 11/19/2015 GATITO MCCALLUM MD Ot M79.7 FIBROMYALGIA 11/19/2015 GATITO MCCALLUM MD Ot R53.83 OTHER FATIGUE 11/19/2015 GATITO MCCALLUM MD Ot Z85.3 PERSONAL HISTORY OF MALIGNANT NEOPLASM O 05/24/2016 ALESSIO VERONICA, GATITO Rehman Ot M23.8X1 OTHER INTERNAL DERANGEMENTS OF RIGHT KNE 05/24/2016 ALESSIO VERONICA, GATITO Rehman Ot Z01.818 ENCOUNTER FOR OTHER PREPROCEDURAL EXAMIN 05/28/2016 ALESSIO VERONICA, GATITO Rehman Ot M23.8X1 OTHER INTERNAL DERANGEMENTS OF RIGHT KNE 05/28/2016 ALESSIO VERONICA, GATITO Rehman Ot Z01.818 ENCOUNTER FOR OTHER PREPROCEDURAL EXAMIN 05/30/2016 Ot V10.3 HX OF BREAST MALIGNANCY 05/30/2016 Ot V58.69 OTH MED,LT, CURRENT USE 05/30/2016 Ot V67.1 RADIOTHERAPY FOLLOW-UP 05/30/2016 Ot V67.2 CHEMOTHERAPY FOLLOW-UP 05/30/2016 Ot 278.00 OBESITY, NOS 05/30/2016 Ot 311 DEPRESSIVE DISORDER NEC 05/30/2016 Ot V10.3 HX OF BREAST MALIGNANCY 05/30/2016 Ot V58.69 OTH MED,LT, CURRENT USE 05/30/2016 Ot V67.1 RADIOTHERAPY FOLLOW-UP 05/30/2016 Ot V67.2 CHEMOTHERAPY FOLLOW-UP 05/30/2016 JUSTO PRUITT Ot 696.1 OTHER PSORIASIS 05/30/2016 JUSTO PRUITT Ot 729.1 MYALGIA AND MYOSITIS NOS 05/30/2016 JUSTO PRUITT Ot V10.3 HX OF BREAST MALIGNANCY 05/30/2016 JUSTO PRUITT Ot V58.69 OTH MED,LT,CURRENT USE 05/30/2016 JUSTO PRUITT Ot V67.1 RADIOTHERAPY FOLLOW-UP 05/30/2016 JUSTO PRUITT Ot V67.2 CHEMOTHERAPY FOLLOW-UP 05/30/2016 JUSTO PRUITT Ot 250.00 DIAB JULIO WO COMPL, TYPE II OR UNSPEC TY 05/30/2016 JUSTO PRUITT Ot 696.1 OTHER PSORIASIS 05/30/2016 JUSTO PRUITT Ot 729.1 MYALGIA AND MYOSITIS NOS 05/30/2016 JUSTO PRUITT Ot V10.3 HX OF BREAST MALIGNANCY 05/30/2016 JUSTO PRUITT Ot V58.67 LONG-TERM (CURRENT) USE OF INSULIN 05/30/2016 JUSTO PRUITT Ot V58.69 OTH MED,LT,CURRENT USE 05/30/2016 CHIDI PRUITTGABY Laughlin Ot V67.1 RADIOTHERAPY FOLLOW-UP 05/30/2016 JUSTO PRUITT Ot V67.2 CHEMOTHERAPY FOLLOW-UP 05/30/2016 Ot 735.0 HALLUX VALGUS 05/30/2016 Ot 735.4 OTHER HAMMER TOE 05/30/2016 Ot V72.81 EXAM-PRE- OPERATIVE CARDIOVASCULAR 05/30/2016 Ot V74.8 SCREEN- BACTERIAL DIS NEC 05/30/2016 GATITO MCCALLUM MD Ot E11.9 TYPE 2 DIABETES MELLITUS WITHOUT COMPLIC 05/30/2016 GATITO MCCALLUM MD Ot F32.9 MAJOR DEPRESSIVE DISORDER, SINGLE EPISOD 05/30/2016 GATITO MCCALLUM MD Ot M19.90 UNSPECIFIED OSTEOARTHRITIS, UNSPECIFIED 05/30/2016 GATITO MCCALLUM MD Ot M23.8X1 OTHER INTERNAL DERANGEMENTS OF RIGHT KNE 05/30/2016 GATITO MCCALLUM MD Ot M79.1 MYALGIA 05/30/2016 GATITO MCCALLUM MD Ot Z79.899 OTHER MECHANIC RECOVERY (CURRENT) DRUG THERAPY 05/30/2016 GATITO MCCALLUM MD Ot Z85.3 PERSONAL HISTORY OF MALIGNANT NEOPLASM O 05/30/2016 GATITO MCCALLUM MD Ot Z96.651 PRESENCE OF RIGHT ARTIFICIAL KNEE JOINT 05/31/2016 GATITO MCCALLUM MD Ot E11.9 TYPE 2 DIABETES MELLITUS WITHOUT COMPLIC 05/31/2016 GATITO MCCALLUM MD Ot F32.9 MAJOR DEPRESSIVE DISORDER, SINGLE EPISOD 05/31/2016 GATITO MCCALLUM MD Ot M19.90 UNSPECIFIED OSTEOARTHRITIS, UNSPECIFIED 05/31/2016 GATITO MCCALLUM MD Ot M23.8X1 OTHER INTERNAL DERANGEMENTS OF RIGHT KNE 05/31/2016 GATITO MCCALLUM MD Ot M79.1 MYALGIA 05/31/2016 GATITO MCCALLUM MD Ot Z79.899 OTHER SHELTER (CURRENT) DRUG THERAPY 05/31/2016 GATITO MCCALLUM MD Ot Z85.3 PERSONAL HISTORY OF MALIGNANT NEOPLASM O 05/31/2016 GATITO MCCALLUM MD Ot Z96.651 PRESENCE OF RIGHT ARTIFICIAL KNEE JOINT 05/31/2016 GATITO MCCALLUM MD Ot E11.9 TYPE 2 DIABETES MELLITUS WITHOUT COMPLIC 05/31/2016 GATITO MCCALLUM MD Ot F32.9 MAJOR DEPRESSIVE DISORDER, SINGLE EPISOD 05/31/2016 GATITO MCCALLUM MD Ot M19.90 UNSPECIFIED OSTEOARTHRITIS, UNSPECIFIED 05/31/2016 GATITO MCCALLUM MD Ot M23.8X1 OTHER INTERNAL DERANGEMENTS OF RIGHT KNE 05/31/2016 GATITO MCCALLUM MD Ot M79.1 MYALGIA 05/31/2016 GATITO MCCALLUM MD Ot Z79.899 OTHER SHELTER (CURRENT) DRUG THERAPY 05/31/2016 GATITO MCCALLUM MD Ot Z85.3 PERSONAL HISTORY OF MALIGNANT NEOPLASM O 05/31/2016 GATITO MCCALLUM MD Ot Z96.651 PRESENCE OF RIGHT ARTIFICIAL KNEE JOINT 06/05/2016 GATITO MCCALLUM MD Ot E11.9 TYPE 2 DIABETES MELLITUS WITHOUT COMPLIC 06/05/2016 GATITO MCCALLUM MD Ot F32.9 MAJOR DEPRESSIVE DISORDER, SINGLE EPISOD 06/05/2016 GATITO MCCALLUM MD Ot M19.90 UNSPECIFIED OSTEOARTHRITIS, UNSPECIFIED 06/05/2016 GATITO MCCALLUM MD Ot M23.8X1 OTHER INTERNAL DERANGEMENTS OF RIGHT KNE 06/05/2016 GATITO MCCALLUM MD Ot M79.1 MYALGIA 06/05/2016 GATITO MCCALLUM MD Ot Z79.899 OTHER MECHANIC RECOVERY (CURRENT) DRUG THERAPY 06/05/2016 GATITO MCCALLUM MD Ot Z85.3 PERSONAL HISTORY OF MALIGNANT NEOPLASM O 06/05/2016 GATITO MCCALLUM MD Ot Z96.651 PRESENCE OF RIGHT ARTIFICIAL KNEE JOINT 06/05/2016 GATITO MCCALLUM MD Ot E11.9 TYPE 2 DIABETES MELLITUS WITHOUT COMPLIC 06/05/2016 GATITO MCCALLUM MD Ot F32.9 MAJOR DEPRESSIVE DISORDER, SINGLE EPISOD 06/05/2016 GATITO MCCALLUM MD Ot M19.90 UNSPECIFIED OSTEOARTHRITIS, UNSPECIFIED 06/05/2016 GATITO MCCALLUM MD Ot M23.8X1 OTHER INTERNAL DERANGEMENTS OF RIGHT KNE 06/05/2016 GATITO MCCALLUM MD Ot M79.1 MYALGIA 06/05/2016 GATITO MCCALLUM MD Ot Z79.899 OTHER MECHANIC RECOVERY (CURRENT) DRUG THERAPY 06/05/2016 GATITO MCCALLUM MD Ot Z85.3 PERSONAL HISTORY OF MALIGNANT NEOPLASM O 06/05/2016 GATITO MCCALLUM MD Ot Z96.651 PRESENCE OF RIGHT ARTIFICIAL KNEE JOINT 07/06/2016 GATITO MCCALLUM MD Ot M67.431 GANGLION, RIGHT WRIST 08/02/2016 GATITO MCCALLUM MD, Ot M67.431 GANGLION, RIGHT WRIST 09/06/2017 ROMERO HAWK MD, Ot E66.01 MORBID (SEVERE) OBESITY DUE TO EXCESS CA 09/06/2017 ROMERO HAWK MD, Ot Z01.818 ENCOUNTER FOR OTHER PREPROCEDURAL EXAMIN 09/06/2017 ROMERO HAWK MD, Ot Z68.41 BODY MASS INDEX (BMI) 40.0-44.9, ADULT 09/09/2017 ROMERO HAWK MD, Ot E66.01 MORBID (SEVERE) OBESITY DUE TO EXCESS CA 09/09/2017 ROMERO HAWK MD, Ot Z01.818 ENCOUNTER FOR OTHER PREPROCEDURAL EXAMIN 09/09/2017 ROMERO HAWK MD, Ot Z68.41 BODY MASS INDEX (BMI) 40.0-44.9, ADULT 09/09/2017 ROMERO HAWK MD, Ot E66.01 MORBID (SEVERE) OBESITY DUE TO EXCESS CA 09/09/2017 ROMERO HAWK MD, Ot Z01.818 ENCOUNTER FOR OTHER PREPROCEDURAL EXAMIN 09/09/2017 ROMERO HAWK MD, Ot Z68.41 BODY MASS INDEX (BMI) 40.0-44.9, ADULT 09/10/2017 ROMERO HAWK MD, Ot E66.01 MORBID (SEVERE) OBESITY DUE TO EXCESS CA 09/10/2017 ROMERO HAWK MD, Ot Z01.818 ENCOUNTER FOR OTHER PREPROCEDURAL EXAMIN 09/10/2017 ROMERO HAWK MD, Ot Z68.41 BODY MASS INDEX (BMI) 40.0-44.9, ADULT 09/11/2017 Ot 278.00 OBESITY, NOS 09/11/2017 Ot 311 DEPRESSIVE DISORDER NEC 09/11/2017 Ot V10.3 HX OF BREAST MALIGNANCY 09/11/2017 Ot V58.69 OTH MED,LT, CURRENT USE 09/11/2017 Ot V67.1 RADIOTHERAPY FOLLOW-UP 09/11/2017 Ot V67.2 CHEMOTHERAPY FOLLOW-UP 09/11/2017 JUSTO PRUITT N Ot 696.1 OTHER PSORIASIS 09/11/2017 JUSTO PRUITT Truman Ot 729.1 MYALGIA AND MYOSITIS NOS 09/11/2017 JUSTO PRUITT N Ot V10.3 HX OF BREAST MALIGNANCY 09/11/2017 JUSTO PRUITT Truman Ot V58.69 OTH MED,LT,CURRENT USE 09/11/2017 JUSTO PRUITT N Ot V67.1 RADIOTHERAPY FOLLOW-UP 09/11/2017 JUSTO PRUITT N Ot V67.2 CHEMOTHERAPY FOLLOW-UP 09/11/2017 JUSTO PRUITT N Ot 250.00 DIAB JULIO WO COMPL, TYPE II OR UNSPEC TY 09/11/2017 JUSTO PRUITT N Ot 696.1 OTHER PSORIASIS 09/11/2017 JUSTO PRUITT N Ot 729.1 MYALGIA AND MYOSITIS NOS 09/11/2017 JUSTO PRUITT Truman Ot V10.3 HX OF BREAST MALIGNANCY 09/11/2017 JUSTO PRUITT N Ot V58.67 LONG-TERM (CURRENT) USE OF INSULIN 09/11/2017 JUSTO PRUITT Truman Ot V58.69 OTH MED,LT,CURRENT USE 09/11/2017 JUSTO PRUITT Truman Ot V67.1 RADIOTHERAPY FOLLOW-UP 09/11/2017 JUSTO PRUITT N Ot V67.2 CHEMOTHERAPY FOLLOW-UP 09/11/2017 Ot 735.0 HALLUX VALGUS 09/11/2017 Ot 735.4 OTHER HAMMER TOE 09/11/2017 Ot V72.81 EXAM-PRE- OPERATIVE CARDIOVASCULAR 09/11/2017 Ot V74.8 SCREEN- BACTERIAL DIS NEC 09/11/2017 ALESSIO VERONICA, GATITO Rehman Ot M67.431 GANGLION, RIGHT WRIST 09/12/2017 Ot 278.00 OBESITY, NOS 09/12/2017 Ot 311 DEPRESSIVE DISORDER NEC 09/12/2017 Ot V10.3 HX OF BREAST MALIGNANCY 09/12/2017 Ot V58.69 OTH MED,LT, CURRENT USE 09/12/2017 Ot V67.1 RADIOTHERAPY FOLLOW-UP 09/12/2017 Ot V67.2 CHEMOTHERAPY FOLLOW-UP 09/12/2017 JUSTO PRUITT N Ot 696.1 OTHER PSORIASIS 09/12/2017 JUSTO PRUITT Ot 729.1 MYALGIA AND MYOSITIS NOS 09/12/2017 JUSTO PRUITT N Ot V10.3 HX OF BREAST MALIGNANCY 09/12/2017 JUSTO PRUITT Ot V58.69 OTH MED,LT,CURRENT USE 09/12/2017 JUSTO PRUITT N Ot V67.1 RADIOTHERAPY FOLLOW-UP 09/12/2017 JUSTO PRUITT N Ot V67.2 CHEMOTHERAPY FOLLOW-UP 09/12/2017 JUSTO PRUITT N Ot 250.00 DIAB JULIO WO COMPL, TYPE II OR UNSPEC TY 09/12/2017 JUSTO PRUITT N Ot 696.1 OTHER PSORIASIS 09/12/2017 JUSTO PRUITT N Ot 729.1 MYALGIA AND MYOSITIS NOS 09/12/2017 JUSTO PRUITT Ot V10.3 HX OF BREAST MALIGNANCY 09/12/2017 JUSTO PRUITT Ot V58.67 LONG-TERM (CURRENT) USE OF INSULIN 09/12/2017 JUSTO PRUITT N Ot V58.69 OTH MED,LT,CURRENT USE 09/12/2017 JUSTO PRUITT Ot V67.1 RADIOTHERAPY FOLLOW-UP 09/12/2017 JUSTO PRUITT N Ot V67.2 CHEMOTHERAPY FOLLOW-UP 09/12/2017 Ot 735.0 HALLUX VALGUS 09/12/2017 Ot 735.4 OTHER HAMMER TOE 09/12/2017 Ot V72.81 EXAM-PRE- OPERATIVE CARDIOVASCULAR 09/12/2017 Ot V74.8 SCREEN- BACTERIAL DIS NEC 09/12/2017 ALESSIO VERONICA, GATITO Rehman Ot M67.431 GANGLION, RIGHT WRIST Procedures Code Description [place] [address] INDIV PSYTX 45/50 MIN 06/04/2012 67110 INDIV PSYTX 45/50 MIN 07/16/2012 67209 ROUTINE VENIPUNCTURE 07/22/2012 21824 CBC 07/22/2012 68198 LIVER PANEL (LFT) 07/22/2012 [id number] GFR CALC (RESULT ONLY) 07/22/2012 54173 TEGRETOL / CARBAMAZIPINE 07/23/2012 28472 RENAL PROFILE 07/23/2012 28984 PSYCH IND W/MED CK 20 07/30/2012 39855 PSYTX PT&/FAMILY 45 MINUTES 10/01/2012 29064 PSYTX PT&/FAMILY 45 MINUTES 10/30/2012 23510 PSYTX PT&/FAMILY 45 MINUTES 11/23/2013 09543 ROUTINE VENIPUNCTURE 05/28/2014 40063 CARBAMAZAPINE (TEGRETOL) TOTAL 05/28/2014 77952 PSYTX PT&/FAMILY 45 MINUTES 08/18/2014 45095 PSYTX PT&/FAMILY 45 MINUTES 11/22/2014 [id number] REPLACE OF R KNEE JT WITH SYNTH SUB, MARÍA 11/16/2015 Results Test Result Range Methicillin resistant Staphylococcus aureus (MRSA) screening culture - 10:16 Methicillin resistant Staphylococcus aureus (MRSA) screening culture NEG NRG Capillary blood glucose measurement by glucometer (mass/volume) - 05/30/16 10: 26 Capillary blood glucose measurement by glucometer (mass/volume) 106 mg/dL 70-110 Capillary blood glucose measurement by glucometer (mass/volume) - 09/12/17 08: 55 Capillary blood glucose measurement by glucometer (mass/volume) 144 mg/dL 70-110 Complete blood count (CBC) with automated white blood cell (WBC) differential - 09/12/17 09:05 Blood leukocytes automated count (number/volume) 9.9 10*3/uL 4.3-11.0 Blood erythrocytes automated count (number/volume) 4.72 10*6/uL 4.35-5.85 Venous blood hemoglobin measurement (mass/volume) 15.0 g/dL 11.5-16.0 Blood hematocrit (volume fraction) 43 % 35-52 Automated erythrocyte mean corpuscular volume 91 [foz_us] 80-99 Automated erythrocyte mean corpuscular hemoglobin (mass per erythrocyte) 32 pg 25-34 Automated erythrocyte mean corpuscular hemoglobin concentration measurement ( mass/volume) 35 g/dL 32-36 Automated erythrocyte distribution width ratio 14.6 % 10.0-14.5 Automated blood platelet count (count/volume) 242 10*3/uL 130-400 Automated blood platelet mean volume measurement 10.3 [foz_us] 7.4-10.4 Automated blood neutrophils/100 leukocytes 58 % 42-75 Automated blood lymphocytes/100 leukocytes 34 % 12-44 Blood monocytes/100 leukocytes 9 % 0-12 Automated blood eosinophils/100 leukocytes 0 % 0-10 Automated blood basophils/100 leukocytes 0 % 0-10 Blood neutrophils automated count (number/volume) 5.7 10*3 1.8-7.8 Blood lymphocytes automated count (number/volume) 3.3 10*3 1.0-4.0 Blood monocytes automated count (number/volume) 0.9 10*3 0.0-1.0 Automated eosinophil count 0.0 10*3/uL 0.0-0.3 Automated blood basophil count (count/volume) 0.0 10*3/uL 0.0-0.1 Whole blood basic metabolic panel - 09/12/17 09:05 Serum or plasma sodium measurement (moles/volume) 136 mmol/L 135-145 Serum or plasma potassium measurement (moles/volume) 3.7 mmol/L 3.6-5.0 Serum or plasma chloride measurement (moles/volume) 101 mmol/L 98-107 Carbon dioxide 24 mmol/L 21-32 Serum or plasma anion gap determination (moles/volume) 11 mmol/L 5-14 Serum or plasma urea nitrogen measurement (mass/volume) 13 mg/dL 7-18 Serum or plasma creatinine measurement (mass/volume) 0.94 mg/dL 0.60-1.30 Serum or plasma urea nitrogen/creatinine mass ratio 14 NRG Serum or plasma creatinine measurement with calculation of estimated glomerular filtration rate > NRG Serum or plasma glucose measurement (mass/volume) 129 mg/dL 70-105 Serum or plasma calcium measurement (mass/volume) 10.2 mg/dL 8.5-10.1 Methicillin resistant Staphylococcus aureus (MRSA) screening culture - 09:05 Methicillin resistant Staphylococcus aureus (MRSA) screening culture NEG NRG Capillary blood glucose measurement by glucometer (mass/volume) - 09/12/17 13: 06 Capillary blood glucose measurement by glucometer (mass/volume) 208 mg/dL 70-110 Capillary blood glucose measurement by glucometer (mass/volume) - 09/12/17 17: 26 Capillary blood glucose measurement by glucometer (mass/volume) 182 mg/dL 70-110 Capillary blood glucose measurement by glucometer (mass/volume) - 09/12/17 23: 27 Capillary blood glucose measurement by glucometer (mass/volume) 144 mg/dL 70-110 Capillary blood glucose measurement by glucometer (mass/volume) - 09/13/17 05: 52 Capillary blood glucose measurement by glucometer (mass/volume) 169 mg/dL 70-110 Automated blood complete blood count (hemogram) panel - 09/13/17 10:00 Blood leukocytes automated count (number/volume) 13.2 10*3/uL 4.3-11.0 Blood erythrocytes automated count (number/volume) 4.54 10*6/uL 4.35-5.85 Venous blood hemoglobin measurement (mass/volume) 14.7 g/dL 11.5-16.0 Blood hematocrit (volume fraction) 41 % 35-52 Automated erythrocyte mean corpuscular volume 91 [foz_us] 80-99 Automated erythrocyte mean corpuscular hemoglobin (mass per erythrocyte) 32 pg 25-34 Automated erythrocyte mean corpuscular hemoglobin concentration measurement ( mass/volume) 36 g/dL 32-36 Automated erythrocyte distribution width ratio 14.2 % 10.0-14.5 Automated blood platelet count (count/volume) 203 10*3/uL 130-400 Automated blood platelet mean volume measurement 11.4 [foz_us] 7.4-10.4 Whole blood basic metabolic panel - 09/13/17 10:00 Serum or plasma sodium measurement (moles/volume) 135 mmol/L 135-145 Serum or plasma potassium measurement (moles/volume) 4.0 mmol/L 3.6-5.0 Serum or plasma chloride measurement (moles/volume) 99 mmol/L 98-107 Carbon dioxide 23 mmol/L 21-32 Serum or plasma anion gap determination (moles/volume) 13 mmol/L 5-14 Serum or plasma urea nitrogen measurement (mass/volume) 14 mg/dL 7-18 Serum or plasma creatinine measurement (mass/volume) 0.77 mg/dL 0.60-1.30 Serum or plasma urea nitrogen/creatinine mass ratio 18 NRG Serum or plasma creatinine measurement with calculation of estimated glomerular filtration rate > NRG Serum or plasma glucose measurement (mass/volume) 156 mg/dL 70-105 Serum or plasma calcium measurement (mass/volume) 8.9 mg/dL 8.5-10.1 Encounters ACCT No. Visit Date/Time Discharge Status Pt. Type Provider Facility Loc./Unit Complaint [id number] 11/22/2014 08:57:00 11/22/2014 23:59:59 JANNA CUI PHD, DAMASO Harley [id number] 11/05/2014 11:42:00 11/05/2014 23:59:59 CLS Outpatient SHASTA POMPA MIQUEL [id number] 08/18/2014 14:45:00 08/18/2014 23:59:59 CLS Outpatient DAMASO CUI PHD [id number] 08/12/2014 13:57:00 08/12/2014 23:59:59 CLS Outpatient SHASTA ERGONOMIST MIQUEL [id number] 07/08/2014 13:10:00 07/08/2014 23:59:59 CLS Outpatient SHASTA MIQUEL POMPA [id number] 05/28/2014 14:28:00 05/28/2014 23:59:59 CLS Outpatient SHASTA MIQUEL POMPA [id number] 12/17/2013 14:29:00 12/17/2013 23:59:59 CLS Outpatient MARY CARMEN GUTHRIE MD [id number] 12/17/2013 14:29:00 12/17/2013 23:59:59 CLS Outpatient SHASTA MIQUEL POMPA [id number] 11/23/2013 14:45:00 11/23/2013 23:59:59 CLS Outpatient DAMASO CUI PHD [id number] 11/10/2013 12:00:00 11/10/2013 23:59:59 CLS Outpatient MARY CARMEN GUTHRIE MD [id number] 03/27/2013 11:56:00 03/27/2013 23:59:59 CLS Outpatient KAT MCKEON DDS [id number] 10/29/2012 13:43:00 10/29/2012 23:59:59 CLS Outpatient MICHELA ARGUELLES DO [id number] 10/01/2012 12:32:00 10/01/2012 23:59:59 CLS Outpatient [id number] 08/27/2012 13:51:00 08/27/2012 23:59:59 CLS Outpatient [id number] 07/30/2012 17:11:00 07/30/2012 23:59:59 CLS Outpatient MICHELA ARGUELLES DO [id number] 07/10/2012 15:49:00 07/10/2012 23:59:59 CLS Outpatient DAMASO CUI PHD [id number] 06/04/2012 16:02:00 06/04/2012 23:59:59 CLS Outpatient DAMASO CUI PHD [id number] 12/26/2012 14:03:00 Document Registration [id number] 09/09/2017 15:00:00 09/09/2017 15:32:00 DIS Outpatient ROMERO HAWK MD [facility] PREOP MORBID OBESITY [id number] 07/05/2016 11:18:00 07/05/2016 23:59:59 CLS Outpatient GATITO MCCALLUM MD [facility] RAD ULNAR GANGLION CYST [id number] 05/30/2016 10:06:00 05/30/2016 14:25:00 DIS Outpatient GATITO MCCALLUM MD [facility] SDC RIGHT KNEE ADHESIONS [id number] 05/24/2016 08:22:00 05/24/2016 10:11:00 DIS Outpatient GATITO MCCALLUM MD [facility] PREOP RIGHT KNEE ADHESIONS [id number] 11/16/2015 06:10:00 11/19/2015 12:50:00 DIS Inpatient GATITO MCCALLUM MD [address] RIGHT KNEE SEVERE OSTEOARTHRITIS [id number] 11/10/2015 11:40:00 11/10/2015 16:23:00 DIS Outpatient GATITO MCCALLUM MD [facility] PREOP RIGHT KNEE SEVERE OSTEOARTHRITIS [id number] 06/29/2014 13:49:00 06/29/2014 23:59:59 CLS Outpatient JUSTO PRUITT [facility] FS [id number] 02/03/2014 14:04:00 02/03/2014 16:15:00 DIS Emergency EDWINA VARGHESE APRN [facility] ER FALL/LEFT LEG PAIN [id number] 06/16/2013 13:37:00 06/16/2013 23:59:59 CLS Outpatient JUSTO PRUITT [facility] FS [id number] 09/12/2017 12:42:00 ACT Inpatient ROMERO HAWK MD [facility] WS MORBID OBESITY,DIABETES,HTN [id number] 09/27/2014 06:20:00 Document Registration [id number] 09/22/2014 11:36:00 Document Registration [id number] 06/29/2014 13:52:00 Document Registration [id number] 06/29/2014 13:52:00 Document Registration [id number] 06/29/2014 13:52:00 Document Registration [id number] 05/27/2012 14:38:00 Document Registration [id number] 05/29/2011 11:09:00 Document Registration [id number] 05/09/2010 13:36:00 Document Registration [id number] 09/16/2009 11:13:00 Document Registration [id number] 08/30/2009 14:43:00 Document Registration [id number] 06/16/2009 14:24:00 Document Registration [id number] 06/08/2009 08:03:00 Document Registration [id number] 06/01/2009 08:43:00 Document Registration [id number] 05/10/2009 15:25:00 Document Registration [id number] 01/18/2009 14:14:00 Document Registration
== END 2017-09-13 15:15 | disposition home or self-care (01) | DRG 621 ==
LOC: SDC 08:38 → SURG 12:42 → WS 13:49 → 4TH 09-13 07:00
PROVIDERS: ADMIT Surgery; ATTEND Surgery
PROC: 0DB64Z3 Excision of Stomach, Percutaneous Endoscopic Approach, Vertical (ICD-10-PCS; principal; 2017-09-12 10:30)
DX: E66.01 Morbid (severe) obesity due to excess calories (principal); E11.40 Type 2 diabetes mellitus with diabetic neuropathy, unspecified; I12.9 Hypertensive chronic kidney disease with stage 1 through stage 4 chronic kidney disease, or unspecified chronic kidney disease; Z68.42 Body mass index [BMI] 45.0-49.9, adult; G43.909 Migraine, unspecified, not intractable, without status migrainosus; K21.9 Gastro-esophageal reflux disease without esophagitis; Z87.442 Personal history of urinary calculi; F32.9 Major depressive disorder, single episode, unspecified; M06.9 Rheumatoid arthritis, unspecified; M79.7 Fibromyalgia; Z92.21 Personal history of antineoplastic chemotherapy; Z92.3 Personal history of irradiation; E03.9 Hypothyroidism, unspecified; Z96.651 Presence of right artificial knee joint; Z85.3 Personal history of malignant neoplasm of breast; M47.9 Spondylosis, unspecified; M17.0 Bilateral primary osteoarthritis of knee; Z88.2 Allergy status to sulfonamides; Z80.0 Family history of malignant neoplasm of digestive organs
CPT/HCPCS: 36415; 80048; 82962; 85025; 85027; 87081; 94640; 94664; 94760

== ENCOUNTER → 2018-11-19 | Outpatient (CLI) | payer MEDICARE, OTHER ==
[~2018-11-19] MED LIST changes: +MTX2.5T PO; -OXYC-197 PO; +OXYC1TAB87 PO; +TRAZ-189 PO; -TRAZ-28 PO
--- NOTE | 2018-11-19 15:39 | Diagnostic Imaging Report ---
INDICATION: Nausea and abdominal pain. TECHNIQUE: Supine and upright abdominal images were obtained. FINDINGS: The lung bases are clear. There is no retroperitoneal free air. The gallbladder appears to be surgically absent. There are multiple surgical nimisha at the GE junction. The bowel gas pattern is normal. There is calcification in the lower midpelvis that could be a bladder calculus. IMPRESSION: Postsurgical changes. The bladder calculus has been present since 09/16/2009. Dictated by: Dictated on workstation # [id number]
== END ==
LOC: RAD FS 15:20
PROVIDERS: ATTEND Nurse Practitioner Family
DX: N21.0 Calculus in bladder (principal); Z98.890 Other specified postprocedural states
CPT/HCPCS: 74019

== ENCOUNTER → 2019-07-10 | Outpatient (CLI) | payer MEDICARE, OTHER ==
[~2019-07-10] MED LIST changes: +CATHETER FLUSH 10 ML SYR IV PRN; +HOLD METFORMIN - RECEIVED CONTRAST 20 ML VIAL IV SCH; +IOHEXOL 350 MG/ML 100 ML (OMNIPAQUE 350) VIAL IV ONE; +LISI1TAB29 PO; +NS 100 ML (IVPB) BAG IV ONE; -TRAZ-189 PO; +TRM50T PO; +TRZ50T PO
[2019-07-10 11:06] LABS: BUN/CREATININE RATIO 21; CREATININE SERUM 0.67 MG/DL (0.60-1.30); GFR ESTIMATED > 60
[2019-07-10 11:46] LABS: CLARITY,URINE CLOUDY; COLOR,URINE RED; PH,URINE 1.025 (5-9); PROTEIN,URINE 3+ (NEGATIVE)
[2019-07-10 11:47] LABS: BACTERIA,URINE FEW /HPF; BILIRUBIN,URINE 2+ (NEGATIVE); GLUCOSE, URINE (UA) NEGATIVE (NEGATIVE); KETONES,URINE TRACE (NEGATIVE); LEUKOCYTE ESTERASE ,URINE 1+ (NEGATIVE); NITRITE,URINE POSITIVE (NEGATIVE); RBC,URINE 50-100 /HPF
--- NOTE | 2019-07-10 12:18 | Diagnostic Imaging Report ---
PROCEDURE: CT abdomen and pelvis with contrast. TECHNIQUE: Multiple contiguous axial images were obtained through the abdomen and pelvis after administration of intravenous contrast. Auto Exposure Controls were utilized during the CT exam to meet ALARA standards for radiation dose reduction. INDICATION: Intermittent right lower quadrant abdominal pain that radiates to the groin. Patient does have a history of breast carcinoma. COMPARISON: Comparison is made with prior CT from 06/01/2009. FINDINGS: The lung bases are clear. No discrete liver mass is detected. The gallbladder is surgically absent. No biliary ductal dilatation is seen. The pancreas and spleen are unremarkable. No adrenal mass is identified. No definite renal calculi are seen. There is a left-sided double-J nephroureteral stent. Proximal portion located within the renal pelvis and distal portion appears to be in the distal left ureter near the UVJ. No ureteral calculi are seen. Midline pelvic calcifications just inferior to the base of the bladder again noted, largest 14 mm in size. Several smaller just inferior to this are present and these are suggestive of ureteral calculi. The aorta is normal caliber. The small and large bowel loops are normal caliber. There is no obstruction. There is a fat-containing umbilical hernia. No free fluid or fluid collection is seen. No definite pelvic or abdominal lymphadenopathy is identified. Bony structures are nonacute. IMPRESSION: 1. Left-sided double-J nephroureteral stent with distal portion in the region of the distal ureter near the UVJ. No definite ureteral calculi or hydronephrosis is seen. There are findings suggestive of multiple ureteral calculi. 2. Small fat-containing umbilical hernia. 3. No other significant abnormality is detected. Dictated by: Dictated on workstation # [id number]
== END ==
LOC: RAD FS 10:13
PROVIDERS: ATTEND Nurse Practitioner Family
DX: K42.9 Umbilical hernia without obstruction or gangrene (principal); R35.0 Frequency of micturition; Z96.0 Presence of urogenital implants
CPT/HCPCS: 36415; 74177; 81000; 82565; 84520; 87088

== ENCOUNTER → 2019-10-12 | Outpatient (CLI) | payer MEDICARE, OTHER ==
[~2019-10-12] MED LIST changes: -CATHETER FLUSH 10 ML SYR IV PRN; -HOLD METFORMIN - RECEIVED CONTRAST 20 ML VIAL IV SCH; -IOHEXOL 350 MG/ML 100 ML (OMNIPAQUE 350) VIAL IV ONE; -NS 100 ML (IVPB) BAG IV ONE
--- NOTE | 2019-10-12 14:10 | Diagnostic Imaging Report ---
INDICATION: Pain x2 months, no known injury. TECHNIQUE: Three views of the left wrist. CORRELATION STUDY: None FINDINGS: The osseous structures of the wrist have an unremarkable appearance. Alignment is anatomic. There is no acute bony abnormality. Small bone fragmentation with degenerative changes at the first carpometacarpal articulation. There is some narrowing of the radiocarpal row. Scapholunate interval is slightly prominent. Small bone fragment tip of the ulnar styloid process could reflect a previous injury. IMPRESSION: 1. Negative for acute bony abnormality of the wrist. Multifocal areas of degenerative-type change suggested. Dictated by: Dictated on workstation # [id number]
== END ==
LOC: RAD FS 11:54
PROVIDERS: ATTEND Nurse Practitioner Family
DX: M25.531 Pain in right wrist (principal)
CPT/HCPCS: 73110

== ENCOUNTER → 2020-03-01 | Outpatient (CLI) | payer MEDICARE, OTHER ==
--- NOTE | 2020-03-01 16:46 | Diagnostic Imaging Report ---
INDICATION: Back pain. TECHNIQUE: AP and lateral views of the thoracic spine were obtained. FINDINGS: The thoracic vertebrae are normal in height and alignment. There are bulky osteophytes in the lower thoracic spine near the thoracolumbar junction. There is diffuse disc space narrowing in the mid to lower thoracic spine. There is no overt destructive bony lesion. IMPRESSION: Extensive degenerative findings in the lower thoracic spine with no acute appearing abnormality. Dictated by: Dictated on workstation # [id number]
--- NOTE | 2020-03-01 16:57 | Diagnostic Imaging Report ---
INDICATION: Low back pain. COMPARISON: Correlation is made with the CT abdomen and pelvis from July 10, 2019. FINDINGS: The lumbar spine alignment is within normal limits. The vertebral body heights appear maintained. There are multilevel endplate changes and small endplate spurs and there is also advanced lower lumbar facet arthropathy from L3-L4 through L5-S1. The most advanced disc space height loss appears at the L4-L5 and L5-S1 levels. There are numerous surgical clips in the left upper quadrant and also cholecystectomy clips in the right upper quadrant. IMPRESSION: Multilevel lumbar degenerative disc disease and facet arthropathy, most advanced at L4-L5 and L5-S1. The alignment is normal and the vertebral body heights appear maintained. Dictated by: Dictated on workstation # [id number]
--- NOTE | 2020-03-01 16:57 | Diagnostic Imaging Report ---
INDICATION: Neck pain. FINDINGS: There is straightening of the cervical lordosis. There is a slight degenerative retrolisthesis of C5 on C6 and minimal anterolisthesis of C4 on C5. The vertebral body heights appear maintained. There are large anterior osteophytes to the C5-C6 and C6-C7 levels. There are multilevel changes of facet arthropathy. There is no abnormal prevertebral soft tissue thickening or widening of the predental space. AP alignment is unremarkable and the odontoid view appears normal. IMPRESSION: Multilevel cervical degenerative disc disease and facet arthropathy with most advanced endplate changes at C5-C6 and C6-C7. There is retrolisthesis of C5 on C6 and a slight anterolisthesis of C4 on C5. Alignment is otherwise normal. Vertebral body heights are maintained. Dictated by: Dictated on workstation # [id number]
== END ==
LOC: RAD FS 15:37
PROVIDERS: ATTEND Nurse Practitioner Family
DX: M51.37 Other intervertebral disc degeneration, lumbosacral region (principal); M50.322 Other cervical disc degeneration at C5-C6 level; M43.12 Spondylolisthesis, cervical region; M47.817 Spondylosis without myelopathy or radiculopathy, lumbosacral region; M47.813 Spondylosis without myelopathy or radiculopathy, cervicothoracic region; M47.815 Spondylosis without myelopathy or radiculopathy, thoracolumbar region
CPT/HCPCS: 72040; 72070; 72100

== ENCOUNTER → 2020-10-24 | Outpatient (CLI) | payer MEDICARE, OTHER ==
[~2020-10-24] MED LIST changes: +CEPH500T PO; +DICY10CA12 PO; -FOLI0.8T PO; +FOLI0.8T4 PO; -FOLI1TAB24 PO; +FOLI1TAB33 PO; -OXYC-471 PO; +OXYC1TAB11 PO; +RT-ALBUTEROL SULF 2.5 MG/3 ML PRE-MIX VIAL INH ONE
--- NOTE | 2020-10-24 14:52 | Diagnostic Imaging Report ---
EXAMINATION: CT Chest without contrast. TECHNIQUE: Multiple contiguous axial images were obtained through the chest without the use of intravenous contrast. All CT scans use one or more of the following dose optimizing techniques: automated exposure control, MA and/or KvP adjustment based on a patient size and exam type, or iterative reconstruction. HISTORY: Cough, shortness of breath, COPD, history of Covid. COMPARISON: CT of the chest, abdomen and pelvis 08/18/2020. FINDINGS: Thyroid: The thyroid is normal. Mediastinum: Heart size is normal without significant pericardial effusion. The aorta is normal in caliber. No suspicious lymphadenopathy. Lungs and airways: Scattered areas of peripheral reticulation and groundglass within both lungs. These have significantly improved from 08/18/2020. There are mild background emphysematous changes in the lungs. No new consolidation, pleural effusion, or pneumothorax. The airways are normal. Upper abdomen: The gallbladder is surgically absent. Surgical changes of the stomach. Musculoskeletal: Surgical changes from right mastectomy. Degenerative changes of the spine without suspicious osseous lesion or compression fracture. IMPRESSION: 1. Interval improvement of the scattered groundglass opacities within the lung peripheries compared to 08/18/2020. There is likely evolving background fibrosis or scarring after Covid infection. No new acute abnormality in the chest. Dictated by: Dictated on workstation # [id number]
== END ==
LOC: RT 12:27
PROVIDERS: ATTEND Nurse Practitioner Family
DX: J44.9 Chronic obstructive pulmonary disease, unspecified (principal); R93.89 Abnormal findings on diagnostic imaging of other specified body structures; Z86.16 Personal history of COVID-19
CPT/HCPCS: 71250; 94060; 94726; 94729

== ENCOUNTER 2020-12-16 13:58 | Outpatient (CLI) | payer MEDICARE, MEDICAID ==
[~2020-12-16 13:58] MED LIST changes: -RT-ALBUTEROL SULF 2.5 MG/3 ML PRE-MIX VIAL INH ONE
== END 2020-12-16 15:25 | disposition home or self-care (01) ==
LOC: SLEEP 13:58
PROVIDERS: ATTEND Nurse Practitioner Family
DX: G47.30 Sleep apnea, unspecified (principal); G47.50 Parasomnia, unspecified; G47.10 Hypersomnia, unspecified
CPT/HCPCS: G0399

== ENCOUNTER → 2021-02-24 | Outpatient (CLI) | payer MEDICARE, MEDICAID ==
[~2021-02-24] MED LIST changes: +CATHETER FLUSH 10 ML SYR IV PRN; +HOLD METFORMIN - RECEIVED CONTRAST 20 ML VIAL IV SCH; +IOHEXOL 350 MG/ML 100 ML (OMNIPAQUE 350) VIAL IV ONE; +NS 100 ML (IVPB) BAG IV ONE
--- NOTE | 2021-02-24 11:13 | Diagnostic Imaging Report ---
PROCEDURE: CT chest with contrast only. TECHNIQUE: Multiple contiguous axial images were obtained through the chest after administration of intravenous contrast. Auto Exposure Controls were utilized during the CT exam to meet ALARA standards for radiation dose reduction. INDICATION: History of breast cancer as well as Covid. COMPARISON: Chest CT 10/24/2020 that comparison is a noncontrasted study. Thin-walled air cyst in the right lower lobe is stable. There is some crowding at the lower lobe and infrahilar lung markings owing to suboptimal inspiratory volume in a chronically elevated right hemidiaphragm. No evidence of acute pneumonia follow-up. Subpleural curvilinear opacities in the lungs have decreased. No bronchiectasis. No significant air trapping noted. No axillary, hilar or mediastinal lymphadenopathy. No effusion or pneumothorax. No lymphadenopathy or evidence of metastatic disease. No suspicious pulmonary nodule. IMPRESSION: No findings of acute pneumonia. Chronic benign thin-walled air cyst in the right lower lobe. No lymphadenopathy or evidence of metastatic disease. No effusion, pneumothorax or adverse development. Dictated by: Dictated on workstation # [id number]
== END ==
LOC: RAD FS 10:04
PROVIDERS: ATTEND Nurse Practitioner Family
DX: J98.4 Other disorders of lung (principal); Z85.3 Personal history of malignant neoplasm of breast; Z86.16 Personal history of COVID-19
CPT/HCPCS: 71260

== ENCOUNTER → 2021-08-16 | Outpatient (CLI) | payer MEDICARE, MEDICAID ==
[~2021-08-16] MED LIST changes: -CATHETER FLUSH 10 ML SYR IV PRN; +CYCL10TA25 PO; -CYCL10TA9 PO; -HOLD METFORMIN - RECEIVED CONTRAST 20 ML VIAL IV SCH; -IOHEXOL 350 MG/ML 100 ML (OMNIPAQUE 350) VIAL IV ONE; -LISI1TAB29 PO; +LISI1TAB44 PO; -NS 100 ML (IVPB) BAG IV ONE
--- NOTE | 2021-08-16 10:47 | Diagnostic Imaging Report ---
EXAMINATION: CT chest without contrast. TECHNIQUE: Multiple contiguous axial images were obtained through the chest without the use of intravenous contrast. All CT scans use one or more of the following dose optimizing techniques: automated exposure control, MA and/or KvP adjustment based on patient size and exam type or iterative reconstruction. HISTORY: Restrictive lung disease, dyspnea on exertion COMPARISON: 02/24/2021 FINDINGS: There are linear opacities in the right lower lobe with a right lower lobe pneumatocele. Findings favored to be related to prior infection. No honeycombing. No bronchiectasis. No edema or pneumonia. No No pleural effusion. No pneumothorax. No suspicious nodules. There is no axillary or supraclavicular lymphadenopathy. There is no mediastinal lymphadenopathy. Heart size is normal. There are moderate coronary artery calcifications. No pericardial effusion. Aorta is normal in caliber. Limited views of the upper abdomen show changes of cholecystectomy. Liver surface is mildly nodular suggestive of cirrhosis. There are no suspicious osseus lesions. IMPRESSION: 1. Mild linear opacities and pneumatocele right lower lobe favored to be related to prior infection. 2. Nodular liver surface concerning for cirrhosis. Dictated by: Dictated on workstation # [id number]
== END ==
LOC: RAD FS 10:13
PROVIDERS: ATTEND Nurse Practitioner Family
DX: J98.4 Other disorders of lung (principal); K76.89 Other specified diseases of liver; Z87.39 Personal history of other diseases of the musculoskeletal system and connective tissue
CPT/HCPCS: 71250

== ENCOUNTER → 2021-09-11 | Outpatient (CLI) | payer MEDICARE, MEDICAID ==
[~2021-09-11] MED LIST changes: +RT-ALBUTEROL SULF 2.5 MG/3 ML PRE-MIX VIAL INH ONE
== END ==
LOC: RT 15:45
PROVIDERS: ATTEND Nurse Practitioner Family
DX: J98.4 Other disorders of lung (principal); Z87.39 Personal history of other diseases of the musculoskeletal system and connective tissue
CPT/HCPCS: 94060; 94726; 94729

== ENCOUNTER → 2022-01-03 | Outpatient (CLI) | payer MEDICARE, MEDICAID ==
[~2022-01-03] MED LIST changes: -RT-ALBUTEROL SULF 2.5 MG/3 ML PRE-MIX VIAL INH ONE
--- NOTE | 2022-01-03 15:58 | Diagnostic Imaging Report ---
INDICATION: Pain. TECHNIQUE: Four views were obtained. FINDINGS: The left femur is intact. There are degenerative changes in the left hip and knee. There is no fracture or dislocation. Soft tissues are unremarkable. IMPRESSION: Degenerative changes in the left hip and knee, otherwise unremarkable. Dictated by: Dictated on workstation # [id number]
--- NOTE | 2022-01-03 16:39 | Diagnostic Imaging Report ---
INDICATION: Pain. Two views were obtained. FINDINGS: The alignment is normal. There is no fracture or dislocation. There are mild degenerative changes. Soft tissues are unremarkable. IMPRESSION: Degenerative changes, however, no acute fracture or dislocation in the left hip. Dictated by: Dictated on workstation # [id number]
== END ==
LOC: RAD FS 14:11
PROVIDERS: ATTEND Nurse Practitioner Family
DX: M16.12 Unilateral primary osteoarthritis, left hip (principal); M17.12 Unilateral primary osteoarthritis, left knee
CPT/HCPCS: 73502; 73552

== ENCOUNTER → 2022-04-17 | Outpatient (CLI) | payer MEDICARE, MEDICAID ==
--- NOTE | 2022-04-17 12:34 | Diagnostic Imaging Report ---
PROCEDURE: US Bilateral lower extremity arterial. TECHNIQUE: Multiple real-time grayscale images are obtained through both lower extremity arterial systems with color Doppler imaging and color Doppler spectral analysis. INDICATION: Claudication. COMPARISON: None available. FINDINGS: Right lower extremity: Color Doppler imaging shows patency of the common femoral, proximal deep femoral, superficial femoral, popliteal, posterior tibial, and dorsalis pedis arteries. There are no elevated peak systolic velocities that would indicate hemodynamically significant stenosis. The waveforms throughout the right lower extremity are triphasic, with the exception of the dorsalis pedis which is biphasic. Left lower extremity: Color Doppler imaging shows patency of the common femoral, proximal deep femoral, superficial femoral, popliteal, posterior tibial, and dorsalis pedis arteries. There are no elevated peak systolic velocities that would indicate hemodynamically significant stenosis. The waveforms throughout the left lower extremity are triphasic, with the exception of the biphasic waveforms in the posterior tibialis and dorsalis pedis arteries. GERSON: Right - 1.07 Left - 0.96 IMPRESSION: No arterial occlusion or hemodynamically significant stenosis in the bilateral lower extremities. Dictated by: Dictated on workstation # [id number]
--- NOTE | 2022-04-17 17:43 | Diagnostic Imaging Report ---
PROCEDURE: US DOPPLER ABD/COMPLETE TECHNIQUE: Multiple real-time grayscale images were obtained over the aorta and mesenteric arteries in various projections. Duplex evaluation of mesenteric arteries was also attempted. INDICATION: Postprandial abdominal pain. FINDINGS: Color Doppler imaging shows patency of the abdominal aorta, celiac artery and superior mesenteric artery. The following velocities were obtained for the superior mesenteric artery: 1. Fasting: Peak systolic velocity 212 cm/s, end-diastolic volume of 39 cm/s. 2. Origin at 5 minutes postprandial: 282 cm/s, end-diastolic 86 cm/s. 3. SMA 3 cm distal to origin 5 minutes postprandial: 289 cm/s, end diastolic 89 cm/s. 4. 10 minutes post prandial origin has a systolic velocity of 320 cm/s, and end diastolic volume of 84 cm/s. 5. At 15 minutes postprandial, end diastolic volume was greater than 320 cm/s, but cannot be further assessed based on scale. The liver, pancreas, spleen and kidneys are normal. No ascites. IVC is normal where visualized. Mid portal vein is patent. Gallbladder is not visualized. 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 CTA abdomen could be performed to allow for anatomic assessment. Dictated by: Dictated on workstation # [id number]
--- NOTE | 2022-04-17 17:49 | Diagnostic Imaging Report ---
NONINVAS [id number] INDICATION: Claudication, unable to walk 2 blocks COMPARISON: None available. TECHNIQUE: Spectral Doppler imaging was utilized to evaluate the posterior tibial and dorsalis pedis arteries on both sides. FINDINGS: A ankle-brachial index of the right posterior tibial artery is 1.07, and 1.1 subacute and dorsalis pedis artery. The ankle-brachial index on the left is 0.96 using the posterior tibial artery, and 1.11 using the dorsalis pedis artery. IMPRESSION: Normal ankle-brachial index on both sides. Dictated by: Dictated on workstation # [id number]
== END ==
LOC: RAD 08:00
PROVIDERS: ATTEND Internal Medicine Interventional Cardiology
DX: I73.9 Peripheral vascular disease, unspecified (principal); R10.84 Generalized abdominal pain; R11.2 Nausea with vomiting, unspecified; R63.4 Abnormal weight loss; R06.02 Shortness of breath
CPT/HCPCS: 93306; 93922; 93925; 93975

== ENCOUNTER 2022-05-10 14:49 | Emergency (ER) | payer MEDICAID, MEDICARE, OTHER ==
[~2022-05-10] VITALS: Ht 167 cm; Wt 95.0 kg
--- NOTE | 2022-05-10 15:08 | ED General ---
General Chief Complaint: General Problems/Pain Stated Complaint: LETHARGY History of Present Illness Date Seen by Provider: May 10, 2022 Time Seen by Provider: 15:08 Initial Comments 67-year-old female presents with weakness. She reports over the last 2 days she is just been extremely tired. She reports some nausea, vomiting and hard time keeping them down. She has a mild left-sided abdominal pain. She denies any diarrhea, she reports chronic constipation. She denies chest pain. She denied shortness of breath. She does report some chronic medical issues due to COVID. No reports of fever. Allergies and Home Medications Allergies Coded Allergies: lithium (Verified Allergy, Severe, SHUT KIDNEYS DOWN, 09/09/17) Sulfa (Sulfonamide Antibiotics) (Unverified Allergy, Mild, ITCHING;RASH, 09/09/17) Patient Home Medication List Home Medication List Reviewed: Yes Cephalexin (Cephalexin) 500 Mg Tablet, 500 MG PO TID Prescribed by: CHRISTINA CUBA on 08/19/20 0146 Cyclobenzaprine HCl (Cyclobenzaprine HCl) 10 Mg Tablet, 10 MG PO TID PRN for MUSCLE SPASMS, (Reported) Entered as Reported by: JU MADDEN on 11/10/15 1235 Desvenlafaxine Succinate (Pristiq ER) 50 Mg Tab.er.24h, 100 MG PO DAILY, (Reported) Entered as Reported by: ABDIRIZAK JIMENEZ on 05/24/16 0905 Dicyclomine HCl (Dicyclomine HCl) 10 Mg Capsule, 10 MG PO Q6H PRN for Abdominal pain Prescribed by: CHRISTINA CUBA on 08/19/20 0146 Escitalopram Oxalate (Lexapro) 20 Mg Tablet, 20 MG PO DAILY, (Reported) Entered as Reported by: JU MADDEN on 09/09/17 1520 Folic Acid (Folic Acid) 0.8 Mg Tablet, 800 MCG PO DAILY, (Reported) Entered as Reported by: DENNIS SUNSHINE on 11/16/15 1259 Gabapentin (Gabapentin) 300 Mg Capsule, 600 MG PO TID, (Reported) Entered as Reported by: DENNIS SUNSHINE on 11/16/15 1259 Insulin Glargine,Hum.rec.anlog (Toujeo Solostar) 300 Unit/1 Ml Insuln.pen, 50 UNIT SQ BID, (Reported) Entered as Reported by: JU MADDEN on 11/10/15 1235 Levothyroxine Sodium (Levothyroxine Sodium) 50 Mcg Tablet, 50 MCG PO DAILY, (Rep orted) Entered as Reported by: JU MADDEN on 09/09/17 1520 Lisinopril/Hydrochlorothiazide (Lisinopril-Hctz 10-12.5 mg Tab) 1 Each Tablet, 1 TAB PO BID, (Reported) Entered as Reported by: JU MADDEN on 11/10/15 1235 Methotrexate Tablet (Methotrexate Tablet) 2.5 Mg Tablet, 20 MG PO WEEKLY ON MONDAYS, (Reported) Entered as Reported by: DENNIS SUNSHINE on 11/16/15 1259 Nitrofurantoin Macrocrystal (Nitrofurantoin) 100 Mg Capsule, 100 MG PO BID Prescribed by: SARTHAK WEN on 05/10/22 171 Ondansetron (Ondansetron Odt) 4 Mg Tab.rapdis, 4 MG PO Q6H PRN for NAUSEA/VOMITING Prescribed by: SARTHAK WEN on 05/10/221716 Pantoprazole Sodium (Protonix) 40 Mg Tablet.dr, 40 MG PO DAILY, (Reported) Entered as Reported by: JU MADDEN on 09/09/17 152 Prednisone (Prednisone) 2.5 Mg Tablet, 2.5 MG PO DAILY, (Reported) Entered as Reported by: JU MADDEN on 09/09/17 1520 Primidone (Primidone) 50 Mg Tablet, 50 MG PO BID, (Reported) Entered as Reported by: JU MADDEN on 09/09/17 152 Propranolol HCl (Propranolol HCl ER) 60 Mg Cap.sa.24h, 120 MG PO HS, (Reported) Entered as Reported by: ABDIRIZAK JIMENEZ on 05/24/16 0905 Sitagliptin Phos/Metformin HCl (Janumet Xr 50-1,000 mg Tablet) 1 Each Tbmp.24hr, 1 TAB PO BID, (Reported) Entered as Reported by: DENNIS SUNSHINE on 11/16/15 1320 Sucralfate (Sucralfate) 1 Gm Tablet, 1 GM PO TID, (Reported) Entered as Reported by: JU MADDEN on 09/09/17 152 Tramadol HCl (Tramadol HCl) 50 Mg Tablet, 100 MG PO Q6H PRN for PAIN-MODERATE, (Reported) Entered as Reported by: JU MADDEN on 09/09/171519 Trazodone HCl (Trazodone HCl) 50 Mg Tablet, 50 MG PO HS, (Reported) Entered as Reported by: JU MADDEN on 09/09/171519 Vortioxetine Hydrobromide (Trintellix) 20 Mg Tablet, 20 MG PO DAILY, (Reported) Entered as Reported by: JU MADDEN on 09/09/171519 Review of Systems Review of Systems Constitutional: No chills, No fever; malaise, weakness EENTM: no symptoms reported Respiratory: see HPI; No cough, No wheezing Cardiovascular: No chest pain, No palpitations Gastrointestinal: abdominal pain (LUQ, LLQ), nausea, vomiting Musculoskeletal: no symptoms reported Skin: no symptoms reported Psychiatric/Neurological: No Symptoms Reported Hematologic/Lymphatic: No Symptoms Reported Past Gtarimt-Yvuiza-Qlrlis Hx Immunizations Up To Date Tetanus Booster (TDap): Unknown Seasonal Allergies Seasonal Allergies: No Past Medical History Surgeries: Yes Gallbladder, Hysterectomy, Lumpectomy Respiratory: No Cardiac: Yes Hypertension Neurological: Yes (HAS HAD BLACK OUT EPISODE "SEIZURE" IN PAST) Headaches /Migraines, Neuropathy Reproductive Disorders: No Sexually Transmitted Disease: No HIV/AIDS: No Bladder Infection, Kidney Stones, Renal Failure Gastrointestinal: Yes Gastroesophageal Reflux, Polyps, Irritable Bowel Musculoskeletal: Yes (OSTEOARTHRITIS) Degenerate Disk Disease, Fibromyalgia, Chronic Back Pain Endocrine: Yes Diabetes, Insulin dep Loss of Vision: Bilateral Hearing Impairment: Denies Cancer: Yes (LYMPH NODES REMOVED) Breast Did You Recieve Any Treatments: Yes What Type of Treatment Did You: Chemotherapy, Radiation, Surgical Intervention Psychosocial: Yes Depression Integumentary: Yes Psoriasis Blood Disorders: No Adverse Reaction/Blood Tranf: No Family Medical History ANEURYSM ON HEART 19 FATHER Abdominal aortic aneurysm COLON CANCER Cardiovascular disease 19 MOTHER Hypertension 19 MOTHER Prostate cancer 19 FATHER SLEEP APNEA 19 FATHER TIA'S 19 FATHER Physical Exam Vital Signs Vital Signs - First Documented 05/10/22 05/10/22 15:22 17:21 Temp 36.6 Pulse 16 Resp 16 B/P (MAP) 121/67 (85) Pulse Ox 100 O2 Delivery Room Air Capillary Refill : Height, Weight, BMI Height: 5'8.50" Weight: 300lbs. 0.0oz. [id number]; 34.00 BMI Method:Stated General Appearance: No Apparent Distress, WD/WN Eyes: Bilateral Eye Normal Inspection HEENT: Moist Mucous Membranes Neck: Non Tender, Supple Respiratory: Lungs Clear, Normal Breath Sounds Cardiovascular: Regular Rate, Rhythm, No Edema Gastrointestinal: Soft, Tenderness (LLQ, LUQ ) Extremity: Normal Capillary Refill, Non Tender Neurologic/Psychiatric: Alert, Oriented x3, No Motor/Sensory Deficits, Normal Mood/Affect, estate planner II-XII Norm as Tested Skin: Normal Color, Warm/Dry Progress/Results/Core Measures Suspected Sepsis SIRS Temperature: Pulse: Respiratory Rate: Laboratory Tests 05/10/22 15:18: White Blood Count 5.9 Blood Pressure / Mean: Laboratory Tests 05/10/22 15:18: Creatinine 0.61, Platelet Count 208, Total Bilirubin 0.5 Results/Orders Lab Results Laboratory Tests Test 05/10/22 15:18 05/10/22 16:35 Range/Units White Blood Count 5.9 4.3-11.0 10^3/uL Red Blood Count 4.18 3.80-5.11 10^6/uL Hemoglobin 13.5 11.5-16.0 g/dL Hematocrit 40 35-52 % Mean Corpuscular Volume 95 80-99 fL Mean Corpuscular Hemoglobin 32 25-34 pg Mean Corpuscular Hemoglobin Concent 34 32-36 g/dL Red Cell Distribution Width 13.7 10.0-14.5 % Platelet Count 208 130-400 10^3/uL Mean Platelet Volume 9.9 9.0-12.2 fL Immature Granulocyte % (Auto) 0 % Neutrophils (%) (Auto) 65 42-75 % Lymphocytes (%) (Auto) 23 12-44 % Monocytes (%) (Auto) 12 0-12 % Eosinophils (%) (Auto) 0 0-10 % Basophils (%) (Auto) 0 0-10 % Neutrophils # (Auto) 3.8 1.8-7.8 10^3/uL Lymphocytes # (Auto) 1.3 1.0-4.0 10^3/uL Monocytes # (Auto) 0.7 0.0-1.0 10^3/uL Eosinophils # (Auto) 0.0 0.0-0.3 10^3/uL Basophils # (Auto) 0.0 0.0-0.1 10^3/uL Immature Granulocyte # (Auto) 0.0 0.0-0.1 10^3/uL Sodium Level 139 135-145 MMOL/L Potassium Level 3.1 L 3.6-5.0 MMOL/L Chloride Level 98 98-107 MMOL/L Carbon Dioxide Level 28 21-32 MMOL/L Anion Gap 13 5-14 MMOL/L Blood Urea Nitrogen 8 7-18 MG/DL Creatinine 0.61 0.60-1.30 MG/DL Estimat Glomerular Filtration Rate 97 BUN/Creatinine Ratio 13 Glucose Level 100 70-105 MG/DL Calcium Level 9.1 8.5-10.1 MG/DL Corrected Calcium 9.1 8.5-10.1 MG/DL Magnesium Level 2.0 1.6-2.4 MG/DL Total Bilirubin 0.5 0.1-1.0 MG/DL Aspartate Amino Transf (AST/SGOT) 23 5-34 U/L Alanine Aminotransferase (ALT/SGPT) 21 0-55 U/L Alkaline Phosphatase 91 40-136 U/L Troponin I < 0.30 <0.30 NG/ML C-Reactive Protein < 0.30 <0.50 MG/DL Total Protein 6.8 6.4-8.2 GM/DL Albumin 4.0 3.2-4.5 GM/DL Urine Color YELLOW Urine Clarity CLOUDY Urine pH 7.0 5-9 Urine Specific [place] 1.010 L 1.016-1.022 Urine Protein NEGATIVE NEGATIVE Urine Glucose (UA) NEGATIVE NEGATIVE Urine Ketones NEGATIVE NEGATIVE Urine Nitrite POSITIVE H NEGATIVE Urine Bilirubin NEGATIVE NEGATIVE Urine Urobilinogen 0.2 < = 1.0 MG/DL Urine Leukocyte Esterase TRACE H NEGATIVE Urine RBC (Auto) NEGATIVE NEGATIVE Urine RBC NONE /HPF Urine WBC 5-10 H /HPF Urine Squamous Epithelial Cells TNTC H /HPF Urine Crystals PRESENT H /LPF Urine Calcium Oxalate Crystals RARE H /LPF Urine Bacteria LARGE H /HPF Urine Casts NONE /LPF Urine Mucus SMALL H /LPF Urine Culture Indicated YES My Orders Orders - SARTHAK WEN DO Cbc With Automated Diff (05/10/22 15:17) Comprehensive Metabolic Panel (05/10/22 15:17) Magnesium (05/10/22 15:17) Ua Culture If Indicated (05/10/22 15:17) Crp Fs (05/10/22 15:17) Troponin I Fs (05/10/22 15:17) Ekg Tracing (05/10/22 15:17) Ondansetron Injection (Zofran Injectio (05/10/22 15:30) Lactated Ringers (Lr 1000 Ml Iv Solution (05/10/22 15:27) Ct Abdomen/Pelvis W (05/10/22 16:01) Iohexol Injection (Omnipaque 350 Mg/Ml 1 (05/10/22 16:15) Received Contrast (Hold Metformin- Contr (05/10/22 16:15) Sodium Chloride Flush (Catheter Flush Sy (05/10/22 16:15) Ns (Ivpb) (Sodium Chloride 0.9% Ivpb Bag (05/10/22 16:15) Urine Culture (05/10/22 16:35) Medications Given in ED Current Medications Medications Dose Ordered Sig/Maura Route Start Time Stop Time Status Last Admin Dose Admin Iohexol 100 ml ONCE ONCE IV 05/10/22 16:15 05/10/22 16:16 DC 05/10/22 16:36 80 ML Ondansetron HCl 4 mg ONCE ONCE IVP 05/10/22 15:30 05/10/22 15:31 DC 05/10/22 15:32 4 MG Sodium Chloride 10 ml NEEDED PRN IV 05/10/22 16:15 05/10/22 17:21 DC 05/10/22 16:36 10 ML Sodium Chloride 100 ml ONCE ONCE IV 05/10/22 16:15 05/10/22 16:16 DC 05/10/22 16:35 80 ML Vital Signs/I&O 05/10/22 05/10/22 15:22 17:21 Temp 36.6 36.6 Pulse 16 16 Resp 16 B/P (MAP) 121/67 (85) 123/52 Pulse Ox 100 100 O2 Delivery Room Air Room Air Capillary Refill : Progress Note : Progress Note Patient's urine is current concerning for a likely urinary tract infection which would be the cause of her malaise vomiting and generally not feeling well. We will treat her with antibiotic along with some Zofran to help with the nausea. Patient CT shows no acute findings. She is stable and should follow-up with her primary care provider in a week for recheck of her symptom ECG Initial ECG Impression Date: May 10, 2022 Initial ECG Impression Time: 15:26 Initial ECG Rate: 65 Initial ECG Rhythm: Normal Sinus Initial ECG Impression: Nonspecific Changes Comment No acute ST elevation or changes Diagnostic Imaging Diagonstic Imaging: CT Plain Films/CT/US/NM/MRI: abdomen, pelvis Comments Date of Exam:05/10/22 CT ABDOMEN/PELVIS W EXAMINATION: CT abdomen and pelvis with intravenous contrast. TECHNIQUE: Multiple contiguous axial images were obtained through the abdomen and pelvis after the uneventful administration of intravenous contrast. All CT scans use one or more of the following dose optimizing techniques: Automated exposure control, MA and/or KvP adjustment based on patient size and exam type or iterative reconstruction. HISTORY: Abdominal pain. COMPARISON: 08/18/2020. FINDINGS: Limited views of the lower thorax show pneumatocele in the right lower lobe. There is mild scarring in the right lung base. The liver surface is nodular suggestive of cirrhosis. No focal liver lesion is seen. There is no biliary ductal dilation. Gallbladder is surgically absent. Pancreas is normal. Spleen is normal. Adrenal glands are normal. The kidneys are normal. There is no hydronephrosis. Urinary bladder is normal. Bowel is normal in caliber without obstruction or inflammation. No free fluid or air. No abdominal or pelvic lymphadenopathy. Aorta is normal in caliber without aneurysm. There are no suspicious osseous lesions. IMPRESSION: 1. Cirrhotic appearing liver. Otherwise, no acute abnormality. Reviewed: Reviewed/Discussed Departure Impression Primary Impression: Urinary tract infection Qualified Codes: N30.01 - Acute cystitis with hematuria Disposition: HOME, SELF-CARE Condition: Stable Departure-Patient Inst. Referrals: DENNIS HOPSON APRN (PCP) Primary Care Physician [facility] ([place]) Primary Care Physician Patient Instructions: Urinary Tract Infection, Adult (DC) Add. Discharge Instructions: Follow-up with your primary care provider in 1 week for recheck of your symptoms All discharge instructions reviewed with patient and/or family. Voiced understanding. Scripts Ondansetron (Ondansetron Odt) 4 Mg Tab.rapdis 4 MG PO Q6H PRN for NAUSEA/VOMITING, #20 TAB 0 Refills Prov: SARTHAK WEN DO 05/10/22 Nitrofurantoin Macrocrystal (Nitrofurantoin) 100 Mg Capsule 100 MG PO BID, #14 CAP 0 Refills Prov: SARTHAK WEN DO 05/10/22 SARTHAK WEN DO May 10, 2022 15:08
[2022-05-10] MEDS ORDERED: LACTATED RINGERS 1,000 ML IV STA (15:27)
[2022-05-10 15:29] LABS: BASOPHILS % (AUTO) 0 % (0-10); EOSINOPHILS % (AUTO) 0 % (0-10); HEMATOCRIT 40 % (35-52); HEMOGLOBIN 13.5 g/dL (11.5-16.0); LYMPHOCYTES # (AUTO) 1.3 10^3/uL (1.0-4.0); LYMPHOCYTES % (AUTO) 23 % (12-44); MEAN CORPUSCULAR HEMOGLOBIN 32 pg (25-34); MEAN CORPUSCULAR HGB CONC 34 g/dL (32-36); MEAN CORPUSCULAR VOLUME 95 fL (80-99); MEAN PLATELET VOLUME 9.9 fL (9.0-12.2); MONOCYTES # (AUTO) 0.7 10^3/uL (0.0-1.0); MONOCYTES % (AUTO) 12 % (0-12); NEUTROPHILS # (AUTO) 3.8 10^3/uL (1.8-7.8); NEUTROPHILS % (AUTO) 65 % (42-75); PLATELET COUNT 208 10^3/uL (130-400); WHITE BLOOD COUNT 5.9 10^3/uL (4.3-11.0)
[2022-05-10] MEDS ORDERED: ONDANSETRON 4 MG/2 ML (SDV) Z0FRAN IVP ONE (15:30)
[2022-05-10 15:54] LABS: CARBON DIOXIDE 28 MMOL/L (21-32); CHLORIDE 98 MMOL/L (98-107); POTASSIUM 3.1 MMOL/L (3.6-5.0); SODIUM 139 MMOL/L (135-145)
[2022-05-10 15:55] LABS: ALANINE AMINOTRANSFERASE 21 U/L (0-55); ALKALINE PHOSPHATASE 91 U/L (40-136); BILIRUBIN,TOTAL 0.5 MG/DL (0.1-1.0); BUN/CREATININE RATIO 13; CALCIUM 9.1 MG/DL (8.5-10.1); CREATININE SERUM 0.61 MG/DL (0.60-1.30); GFR ESTIMATED 97; GLUCOSE 100 MG/DL (70-105); TOTAL PROTEIN 6.8 GM/DL (6.4-8.2)
[2022-05-10] MEDS ORDERED: IOHEXOL 350 MG/ML 100 ML (OMNIPAQUE 350) VIAL IV ONE (16:15)
[2022-05-10] MEDS ORDERED: HOLD METFORMIN - RECEIVED CONTRAST 20 ML VIAL IV SCH (16:15)
[2022-05-10] MEDS ORDERED: NS 100 ML (IVPB) BAG IV ONE (16:15)
[2022-05-10] MEDS ORDERED: CATHETER FLUSH 10 ML SYR IV PRN (16:15)
[2022-05-10 16:49] LABS: BILIRUBIN,URINE NEGATIVE (NEGATIVE); CLARITY,URINE CLOUDY; COLOR,URINE YELLOW; GLUCOSE, URINE (UA) NEGATIVE (NEGATIVE); KETONES,URINE NEGATIVE (NEGATIVE); LEUKOCYTE ESTERASE ,URINE TRACE (NEGATIVE); NITRITE,URINE POSITIVE (NEGATIVE); PROTEIN,URINE NEGATIVE (NEGATIVE)
--- NOTE | 2022-05-10 16:50 | Diagnostic Imaging Report ---
EXAMINATION: CT abdomen and pelvis with intravenous contrast. TECHNIQUE: Multiple contiguous axial images were obtained through the abdomen and pelvis after the uneventful administration of intravenous contrast. All CT scans use one or more of the following dose optimizing techniques: Automated exposure control, MA and/or KvP adjustment based on patient size and exam type or iterative reconstruction. HISTORY: Abdominal pain. COMPARISON: 08/18/2020. FINDINGS: Limited views of the lower thorax show pneumatocele in the right lower lobe. There is mild scarring in the right lung base. The liver surface is nodular suggestive of cirrhosis. No focal liver lesion is seen. There is no biliary ductal dilation. Gallbladder is surgically absent. Pancreas is normal. Spleen is normal. Adrenal glands are normal. The kidneys are normal. There is no hydronephrosis. Urinary bladder is normal. Bowel is normal in caliber without obstruction or inflammation. No free fluid or air. No abdominal or pelvic lymphadenopathy. Aorta is normal in caliber without aneurysm. There are no suspicious osseous lesions. IMPRESSION: 1. Cirrhotic appearing liver. Otherwise, no acute abnormality. Dictated by: Dictated on workstation # [id number]
[2022-05-10 16:54] LABS: BACTERIA,URINE LARGE /HPF; CALCIUM OXALATE CRYSTALS,UR RARE /LPF; SQUAMOUS EPITHELIAL CELL,UR TNTC /HPF
[2022-05-10] MEDS ORDERED: ONDA4TAB11 PO (17:17)
[2022-05-10] MEDS ORDERED: NITR100C PO (17:17)
[2022-05-10 17:21] VITALS: BP 123/52
== END 2022-05-10 17:21 | disposition home or self-care (01) ==
LOC: EDUNIT# 14:49 → ER FS 14:51
DX: N39.0 Urinary tract infection, site not specified (principal); E11.40 Type 2 diabetes mellitus with diabetic neuropathy, unspecified; Z87.442 Personal history of urinary calculi; Z86.16 Personal history of COVID-19; Z79.4 Long term (current) use of insulin
CPT/HCPCS: 36415; 74177; 80053; 81000; 83735; 84484; 85025; 86141; 87077; 87088; 87186; 93005; 96361; 96374; Q9967

== ENCOUNTER 2022-06-15 21:48 | Emergency (ER) | payer OTHER, MEDICAID ==
[~2022-06-15] VITALS: Ht 172.7 cm; Wt 100.0 kg
[2022-06-15 21:48] VITALS: BP 143/74
[~2022-06-15 21:48] MED LIST changes: +NITR100C PO; +ONDA4TAB11 PO
--- NOTE | 2022-06-15 22:01 | ED Fall/Injury ---
General Stated Complaint: FELL,L KNEE PAIN History of Present Illness Date Seen by Provider: Jun 15, 2022 Time Seen by Provider: 21:58 Initial Comments 67-year-old female presents with left knee pain and left rib pain. Patient was getting ready to sit back on the bed when she did not set back far enough and fell/slid down the bed. Patient presents because she is complaining of pain in her left lower knee. Patient also has complaints of chronic weakness has been going on for quite a while. Patient did not hit her head or have any other reported injuries. " Allergies and Home Medications Allergies Coded Allergies: lithium (Verified Allergy, Severe, SHUT KIDNEYS DOWN, 09/09/17) Sulfa (Sulfonamide Antibiotics) (Unverified Allergy, Mild, ITCHING;RASH, 09/09/17) Patient Home Medication List Home Medication List Reviewed: Yes Cephalexin (Cephalexin) 500 Mg Tablet, 500 MG PO TID Prescribed by: CHRISTINA CUBA on 08/19/20 0146 Cyclobenzaprine HCl (Cyclobenzaprine HCl) 10 Mg Tablet, 10 MG PO TID PRN for MUSCLE SPASMS, (Reported) Entered as Reported by: JU MADDEN on 11/10/15 1235 Desvenlafaxine Succinate (Pristiq ER) 50 Mg Tab.er.24h, 100 MG PO DAILY, (Reported) Entered as Reported by: ABDIRIZAK JIMENEZ on 05/24/16 0905 Dicyclomine HCl (Dicyclomine HCl) 10 Mg Capsule, 10 MG PO Q6H PRN for Abdominal pain Prescribed by: CHRISTINA CUBA on 08/19/20 0146 Escitalopram Oxalate (Lexapro) 20 Mg Tablet, 20 MG PO DAILY, (Reported) Entered as Reported by: JU MADDEN on 09/09/17 1520 Folic Acid (Folic Acid) 0.8 Mg Tablet, 800 MCG PO DAILY, (Reported) Entered as Reported by: DENNIS SUNSHINE on 11/16/15 1259 Gabapentin (Gabapentin) 300 Mg Capsule, 600 MG PO TID, (Reported) Entered as Reported by: DENNIS SUNSHINE on 11/16/15 1259 Insulin Glargine,Hum.rec.anlog (Toujebreanna Solostar) 300 Unit/1 Ml Insuln.pen, 50 UNIT SQ BID, (Reported) Entered as Reported by: JU MADDEN on 11/10/15 1235 Levothyroxine Sodium (Levothyroxine Sodium) 50 Mcg Tablet, 50 MCG PO DAILY, (Reported) Entered as Reported by: JU MADDEN on 09/09/17 1520 Lisinopril/Hydrochlorothiazide (Lisinopril-Hctz 10-12.5 mg Tab) 1 Each Tablet, 1 TAB PO BID, (Reported) Entered as Reported by: JU MADDEN on 11/10/15 1235 Methotrexate Tablet (Methotrexate Tablet) 2.5 Mg Tablet, 20 MG PO WEEKLY ON MONDAYS, (Reported) Entered as Reported by: DENNIS SUNSHINE on 11/16/15 1259 Nitrofurantoin Macrocrystal (Nitrofurantoin) 100 Mg Capsule, 100 MG PO BID Prescribed by: SARTHAK WEN on 05/10/221716 Ondansetron (Ondansetron Odt) 4 Mg Tab.rapdis, 4 MG PO Q6H PRN for NAUSEA/VOMITING Prescribed by: SARTHAK WEN on 05/10/221716 Pantoprazole Sodium (Protonix) 40 Mg Tablet.dr, 40 MG PO DAILY, (Reported) Entered as Reported by: JU MADDEN on 09/09/17 152 Prednisone (Prednisone) 2.5 Mg Tablet, 2.5 MG PO DAILY, (Reported) Entered as Reported by: JU MADDEN on 09/09/17 152 Primidone (Primidone) 50 Mg Tablet, 50 MG PO BID, (Reported) Entered as Reported by: JU MADDEN on 09/09/17 1520 Propranolol HCl (Propranolol HCl ER) 60 Mg Cap.sa.24h, 120 MG PO HS, (Reported) Entered as Reported by: ABDIRIZAK JIMENEZ on 05/24/16 0905 Sitagliptin Phos/Metformin HCl (Janumet Xr 50-1,000 mg Tablet) 1 Each Tbmp.24hr, 1 TAB PO BID, (Reported) Entered as Reported by: DENNIS SUNSHINE on 11/16/15 1320 Sucralfate (Sucralfate) 1 Gm Tablet, 1 GM PO TID, (Reported) Entered as Reported by: JU MADDEN on 09/09/17 152 Tramadol HCl (Tramadol HCl) 50 Mg Tablet, 100 MG PO Q6H PRN for PAIN-MODERATE, (Reported) Entered as Reported by: JU MADDEN on 09/09/17 152 Trazodone HCl (Trazodone HCl) 50 Mg Tablet, 50 MG PO HS, (Reported) Entered as Reported by: JU MADDEN on 09/09/17 152 Vortioxetine Hydrobromide (Trintellix) 20 Mg Tablet, 20 MG PO DAILY, (Reported) Entered as Reported by: JU MADDEN on 09/09/171519 Review of Systems Review of Systems Constitutional: No chills, No fever; weakness (Chronic, generalized) Eyes: No Symptoms Reported Ears, Nose, Mouth, Throat: no symptoms reported Respiratory: No cough, No short of breath Cardiovascular: No chest pain, No palpitations Gastrointestinal: No abdominal pain, No diarrhea Genitourinary: no symptoms reported Musculoskeletal: see HPI Skin: no symptoms reported Past Fxnigix-Zweqzq-Bkrphb Hx Immunizations Up To Date Tetanus Booster (TDap): Unknown Seasonal Allergies Seasonal Allergies: No Past Medical History Surgeries: Yes Gallbladder, Hysterectomy, Lumpectomy Respiratory: No Cardiac: Yes Hypertension Neurological: Yes (HAS HAD BLACK OUT EPISODE "SEIZURE" IN PAST) Headaches /Migraines, Neuropathy Reproductive Disorders: No Sexually Transmitted Disease: No HIV/AIDS: No Bladder Infection, Kidney Stones, Renal Failure Gastrointestinal: Yes Gastroesophageal Reflux, Polyps, Irritable Bowel Musculoskeletal: Yes (OSTEOARTHRITIS) Degenerate Disk Disease, Fibromyalgia, Chronic Back Pain Endocrine: Yes Diabetes, Insulin dep Loss of Vision: Bilateral Hearing Impairment: Denies Cancer: Yes (LYMPH NODES REMOVED) Breast Did You Recieve Any Treatments: Yes What Type of Treatment Did You: Chemotherapy, Radiation, Surgical Intervention Psychosocial: Yes Depression Integumentary: Yes Psoriasis Blood Disorders: No Adverse Reaction/Blood Tranf: No Family Medical History ANEURYSM ON HEART 19 FATHER Abdominal aortic aneurysm COLON CANCER Cardiovascular disease 19 MOTHER Hypertension 19 MOTHER Prostate cancer 19 FATHER SLEEP APNEA 19 FATHER TIA'S 19 FATHER Physical Exam Vital Signs Vital Signs - First Documented 06/15/22 21:48 Temp 36.5 Pulse 72 Resp 20 B/P (MAP) 143/74 (97) Capillary Refill : Height, Weight, BMI Height: 5'8.50" Weight: 300lbs. 0.0oz. [id number]; 34.00 BMI Method:Stated General Appearance: no apparent distress HEENT: PERRL/EOMI, normal ENT inspection Cardiovascular: normal peripheral pulses, regular rate, rhythm Respiratory: lungs clear, normal breath sounds Gastrointestinal: non tender, soft Extremities: other (Mild tenderness left ribs, mild tenderness lower left lateral knee) Neurologic/Psychiatric: alert, normal mood/affect, oriented x 3 Skin: normal color, warm/dry Progress/Results/Core Measures Results/Orders My Orders Orders - BEHZADSARTHAK L DO Knee 3 View Left (06/15/22 21:56) Ribs/Unilateral With Chest (06/15/22 21:56) Vital Signs/I&O 06/15/22 21:48 Temp 36.5 Pulse 72 Resp 20 B/P (MAP) 143/74 (97) Progress Progress Note : Progress Note Patient with no acute fracture noted on x-rays. Patient initially complained of left rib pain but then when she was get her x-ray she complained to the tech about right rib pain. When I went in to revisit with her she will complain again to me about right rib pain. She reports that she has had pain in that area from a fall previously. No acute fractures noted on rib x-ray. Patient has had frequent falls and chronic weakness. I discussed with her that she should follow with her primary care provider for continued outpatient evaluation. She did mention that they feel that she might need to go to assisted living and I asked her to revisit with her primary care provider about that. Patient stable and discharged home Diagnostic Imaging Diagonstic Imaging: Xray Plain Films/CT/US/NM/MRI: knee Comments Osteoarthritis, no acute abnormality noted Reviewed: Reviewed by Me Diagonstic Imaging: Xray Plain Films/CT/US/NM/MRI: chest Comments No acute rib fractures or abnormality noted Departure Impression Primary Impression: Knee pain Qualified Codes: M25.562 - Pain in left knee Additional Impressions: Osteoarthritis, knee Qualified Codes: M17.12 - Unilateral primary osteoarthritis, left knee Fall Qualified Codes: W19.XXXA - Unspecified fall, initial encounter Rib pain on right side Disposition: 01 HOME, SELF-CARE Condition: Stable Departure-Patient Inst. Referrals: DENNIS HOPSON APRN (PCP) Primary Care Physician [facility] (Family) Primary Care Physician Patient Instructions: Preventing Falls ED, Knee Pain ED, Getting Up From a Fall Add. Discharge Instructions: Follow-up with your primary care provider next week for continued evaluation of your chronic generalized weakness and falls. SARTHAK WEN DO Jun 15, 2022 22:01
--- NOTE | 2022-06-16 07:45 | Diagnostic Imaging Report ---
EXAM: RIBS/UNILATERAL WITH CHEST. INDICATION: Trauma. Fall. Chest pain. COMPARISON: CT chest without contrast 08/16/2021. FINDINGS: Normal heart size and central pulmonary vascularity. Lungs are clear. No pleural effusion or pneumothorax. Cholecystectomy clips. IMPRESSION: 1. Negative chest. 2. No right rib fractures identified. Dictated by: Dictated on workstation # [id number]
--- NOTE | 2022-06-16 07:47 | Diagnostic Imaging Report ---
INDICATION: Fall, pain. COMPARISON: None available. TECHNIQUE: Three radiographs of the left knee dated 06/15/2022. FINDINGS: No acute fracture or dislocation. No destructive osseous process. Moderate medial joint space narrowing and mild lateral joint space narrowing. Mild to moderate tricompartmental osteophytosis, greatest within the medial compartment. Well-corticated ossific density is identified superior to the medial tibial spine. Chondrocalcinosis of the menisci. No significant knee joint effusion. No suspicious radiopaque foreign body. IMPRESSION: No acute osseous abnormality with moderate degenerative changes present, greatest within the medial compartment. Chondrocalcinosis which may relate to CPPD deposition disease though can also relate to underlying osteoarthritis. Probable small loose body overlying the medial tibial spine. Dictated by: Dictated on workstation # [id number]
== END 2022-06-15 23:00 | disposition home or self-care (01) ==
LOC: EDUNIT# 21:48 → ER FS 21:49
DX: M17.12 Unilateral primary osteoarthritis, left knee (principal); R07.81 Pleurodynia; E11.9 Type 2 diabetes mellitus without complications; Z79.4 Long term (current) use of insulin; W01.0XXA Fall on same level from slipping, tripping and stumbling without subsequent striking against object, initial encounter
CPT/HCPCS: 71101; 73562

== ENCOUNTER → 2022-11-15 | Outpatient (CLI) | payer MEDICARE, MEDICAID ==
[~2022-11-15] MED LIST changes: +RT-ALBUTEROL SULF 2.5 MG/3 ML PRE-MIX VIAL INH ONE
== END ==
LOC: RT 09:07
PROVIDERS: ATTEND Nurse Practitioner Family
DX: J98.4 Other disorders of lung (principal); Z87.39 Personal history of other diseases of the musculoskeletal system and connective tissue
CPT/HCPCS: 94060; 94726; 94729